=== PATIENT | female | born 1935 | race Caucasian/White ===

== ENCOUNTER 2018-04-12 12:32 | Observation (INO) | payer OTHER, MEDICARE ==
--- NOTE | 2018-04-12 13:03 | PDOC ---
History of Present Illness - General Stated Complaint: Lightheaded Time Seen by Provider: 04/12/18 12:56 - History of Present Illness Initial Comments: 04/12/18 13:03 Ms. Campos is an 82 yo female w/ pmh of HTN, HLD, diverticulitis, hiatal hernia who presents for evaluation of 2 day history of intermittent dizziness and nausea. Patient reports she has additionally felt some midline upper abdominal pain which she reports is different from her normal hialtal hernia pain. She also reports a several day history of foul smelling urine although she denies other urinary symptoms. The patient denies chest pain, shortness of breath, and headache. Denies fever, chills, vomit, diarrhea and constipation. Denies dysuria, frequency, urgency and hematuria. Past History - Past Medical History Allergies/Adverse Reactions: Allergies Allergy/AdvReac Type Severity Reaction Status Date / Time aspirin Allergy Verified 09/29/13 19:52 [From Aspirin Regimen Farooq/Calcium] diazepam [From Valium] Allergy Verified 09/29/13 19:52 sumatriptan [From Imitrex] Allergy unknown Verified 09/29/13 19:52 Home Medications: Ambulatory Orders Clopidogrel Bisulfate [Plavix -] 75 mg PO DAILY 09/29/13 Atorvastatin Calcium 40 mg PO HS 04/12/18 Calcium Carbonate/Vitamin D3 [Calcium 500 + Vit D3 400 Tab] 1 each PO DAILY 02/18 Lisinopril [Prinivil] 20 mg PO DAILY 04/12/18 Metoprolol Succinate 25 mg PO DAILY 04/12/18 Ranitidine HCl 150 mg PO DAILY 04/12/18 Anemia: No Asthma: No Cancer: No Cardiac Disorders: No 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) COPD: No CHF: No Dementia: No Diabetes: No GI Disorders: Yes (ABDOMINAL PAIN,CONSTIPATION, diverticulitis) Disorders: Yes (uti 1 wk ago) HTN: Yes Hypercholesterolemia: Yes Liver Disease: No Seizures: No Thyroid Disease: No - Surgical History Abdominal Surgery: Yes Appendectomy: Yes Cardiac Surgery: No Cholecystectomy: Yes Lung Surgery: No Neurologic Surgery: Yes (LAMINECTOMY) Orthopedic Surgery: Yes (TELLO-KNEE REPLACEMENT) - Immunization History Immunization Up to Date: Yes - Suicide/Smoking/Psychosocial Hx Smoking Status: No Smoking History: Never smoked Have you smoked in the past 12 months: No Number of Cigarettes Smoked Daily: 0 Hx Alcohol Use: No Drug/Substance Use Hx: No Substance Use Type: None Hx Substance Use Treatment: No Review of Systems - Review of Systems Comments:: 04/12/18 13:08 GENERAL/CONSTITUTIONAL: No fever or chills. No weakness. HEAD, EYES, EARS, NOSE AND THROAT: No change in vision. No ear pain or discharge. No sore throat. CARDIOVASCULAR: No chest pain or shortness of breath RESPIRATORY: No cough, wheezing, or hemoptysis. GASTROINTESTINAL: +Midline abdominal pain. Some nausea, no vomiting, diarrhea or constipation. GENITOURINARY: +Malodorous urine as described. No dysuria or frequency changes. MUSCULOSKELETAL: No joint or muscle swelling or pain. No neck or back pain. SKIN: No rash NEUROLOGIC: +Dizziness episodes as described. No headache, loss of consciousness , or change in strength/sensation. ENDOCRINE: No increased thirst. No abnormal weight change HEMATOLOGIC/LYMPHATIC: No anemia, easy bleeding, or history of blood clots. ALLERGIC/IMMUNOLOGIC: No hives or skin allergy. *Physical Exam - Physical Exam Comments: 04/12/18 13:09 GENERAL: Awake, alert, and fully oriented, in no acute distress HEAD: No signs of trauma, normocephalic, atraumatic EYES: PERRLA, EOMI, sclera anicteric, conjunctiva clear ENT: Auricles normal inspection, hearing grossly normal, nares patent, oropharynx clear without exudates. Moist mucosa NECK: Normal ROM, supple, no lymphadenopathy, JVD, or masses LUNGS: No distress, speaks full sentences, clear to auscultation bilaterally HEART: Regular rate and rhythm, normal S1 and S2, no murmurs, rubs or gallops, peripheral pulses normal and equal bilaterally. ABDOMEN: Soft, nontender, normoactive bowel sounds. No guarding, no rebound. No masses EXTREMITIES: Normal inspection, Normal range of motion, no edema. No clubbing or cyanosis. NEUROLOGICAL: Cranial nerves II through XII grossly intact. Normal speech, normal gait, no focal sensorimotor deficits SKIN: Warm, Dry, normal turgor, no rashes or lesions noted. ED Treatment Course - LABORATORY CBC & Chemistry Diagram: 04/12/18 13:35 04/12/18 13:35 Medical Decision Making - Medical Decision Making 04/12/18 17:11 Ms. Campos is an 82 yo female w/ pmh as described who presents for evaluation of symptoms concerning for CVA. Patient workup for etiology of dizziness negative. Elevated lactate treated w/ NS 1L bolus. Labs otherwise grossly wnl. Rocephin given for minor UTI as below. Admitting patient for further Neurology assessment. Laboratory Results - last 24 hr 04/12/18 04/12/18 04/12/18 13:35 13:35 13:35 WBC 7.9 RBC 4.86 Hgb 13.9 Hct 43.1 MCV 88.6 MCH 28.6 MCHC 32.3 RDW 14.8 Plt Count 306 MPV 8.7 D Absolute Neuts (auto) 6.1 Neutrophils % 77.1 Lymphocytes % 13.3 Monocytes % 8.0 Eosinophils % 0.7 Basophils % 0.9 Nucleated RBC % 0 Sodium 138 Potassium 4.2 Chloride 104 Carbon Dioxide 27 Anion Gap 8 BUN 16 Creatinine 0.8 Creat Clearance w eGFR > 60 Random Glucose 114 H Lactic Acid 2.1 H Calcium 9.1 Total Bilirubin 0.6 AST 20 ALT 24 Alkaline Phosphatase 92 Creatine Kinase 36 Troponin I < 0.02 Total Protein 7.1 Albumin 3.7 Urine Color Urine Appearance Urine pH Ur Specific [place] Urine Protein Urine Glucose (UA) Urine Ketones Urine Blood Urine Nitrite Urine Bilirubin Urine Urobilinogen Ur Leukocyte Esterase Urine WBC (Auto) Urine RBC (Auto) Urine Bacteria Hyaline Casts Urine Mucus 04/12/18 15:00 WBC RBC Hgb Hct MCV MCH MCHC RDW Plt Count MPV Absolute Neuts (auto) Neutrophils % Lymphocytes % Monocytes % Eosinophils % Basophils % Nucleated RBC % Sodium Potassium Chloride Carbon Dioxide Anion Gap BUN Creatinine Creat Clearance w eGFR Random Glucose Lactic Acid Calcium Total Bilirubin AST ALT Alkaline Phosphatase Creatine Kinase Troponin I Total Protein Albumin Urine Color Yellow Urine Appearance Slcloudy Urine pH 5.0 Ur Specific [place] 1.015 Urine Protein Negative Urine Glucose (UA) Negative Urine Ketones Negative Urine Blood 1+ H Urine Nitrite Negative Urine Bilirubin Negative Urine Urobilinogen Negative Ur Leukocyte Esterase Trace Urine WBC (Auto) 11 Urine RBC (Auto) 1 Urine Bacteria Few Hyaline Casts 1 Urine Mucus Rare *DC/Admit/Observation/Transfer Diagnosis at time of Disposition: Dizziness - Discharge Dispostion Decision to Admit order: Yes - Referrals Referrals: Zeke Daniel MD [Primary Care Provider] - - Patient Instructions - Post Discharge Activity
[2018-04-12 13:15] VITALS: BMI 35.7
[2018-04-12] MEDS ORDERED: ONDANSETRON 4 MG/2 ML VIAL IVPUSH ONE (13:46)
[2018-04-12] MEDS ORDERED: ONDANSETRON 4 MG/2 ML VIAL ONE (14:04)
[2018-04-12 14:10] LABS: BASO % 0.9 % (0-2.0); EOS % 0.7 % (0-4.5); HEMATOCRIT 43.1 % (32.4-45.2); HEMOGLOBIN 13.9 GM/dL (10.7-15.3); LYMPH % 13.3 % (8-40); MCH 28.6 pg (25.7-33.7); MCHC 32.3 g/dl (32.0-36.0); MEAN CELL VOLUME 88.6 fl (80-96); MEAN PLT VOLUME 8.7 fl (7.5-11.1); NEUT % 77.1 % (42.8-82.8); PLATELET COUNT 306 K/MM3 (134-434); RBC 4.86 M/mm3 (3.60-5.2); RDW 14.8 % (11.6-15.6); WHITE BLOOD COUNT 7.9 K/mm3 (4.0-10.0)
[2018-04-12 14:28] LABS: ALBUMIN 3.7 g/dl (3.4-5.0); ALK PHOS 92 U/L (45-117); ANION GAP 8 MMOL/L (8-16); BILIRUBIN,TOTAL 0.6 mg/dL (0.2-1); BLOOD UREA NITROGEN 16 mg/dL (7-18); CALCIUM 9.1 mg/dL (8.5-10.1); CHLORIDE 104 mmol/L (98-107); CO2 27 mmol/L (21-32); CREATININE 0.8 mg/dL (0.55-1.3); GLUCOSE,RANDOM 114 mg/dL (74-106); POTASSIUM 4.2 mmol/L (3.5-5.1); SGOT/AST 20 U/L (15-37); SGPT/ALT 24 U/L (13-61); SODIUM 138 mmol/L (136-145); TOT PROT 7.1 g/dl (6.4-8.2)
[2018-04-12] MEDS ORDERED: SODIUM CHLORIDE 1,000 ML IV STA (14:33)
--- NOTE | 2018-04-12 15:09 | EKG ---
Test Reason : Blood Pressure : / mmHG Vent. Rate : 069 BPM Atrial Rate : 069 BPM P-R Int : 136 ms QRS Dur : 114 ms QT Int : 436 ms P-R-T Axes : 014 -43 013 degrees QTc Int : 467 ms SINUS RHYTHM WITH PREMATURE ATRIAL COMPLEXES LEFT AXIS DEVIATION INCOMPLETE RIGHT BUNDLE BRANCH BLOCK ABNORMAL ECG WHEN COMPARED WITH ECG OF 14-MAY-2013 10:55, PREMATURE ATRIAL COMPLEXES ARE NOW PRESENT Confirmed by YANG ISBELL, HOLLI ([id number]) on 04/12/2018 3:08:59 PM Referred By: Confirmed By:HOLLI SORIA MD
[2018-04-12] MEDS ORDERED: MECLIZINE HCL 25 MG TABLET (FP) PO ONE (15:47)
--- NOTE | 2018-04-12 16:02 | PDOC ---
Attending Attestation - Resident Resident Name: Valdo Zelaya - ED Attending Attestation I have performed the following: I have examined & evaluated the patient, The case was reviewed & discussed with the resident, I agree w/resident's findings & plan, Exceptions are as noted - HPI HPI: 04/12/18 15:54 82 F with h/o HTN, HLD, diverticulitis, hiatal hernia, CVA with residual L side weakness, presents to ED with unsteadiness. Pt states that she has been having difficulty maintaining her balance for 2 days. Denies any falls. States that she ambulates with a walker normally but feels like she is "on a boat" when she attempts to walk. This morning, pt attempted to go to the bathroom but felt like she was going to fall. Pt denies any unilateral weakness/numbness. Endorses intermittent headache and nausea without vomiting. Denies CP/SOB. Denies F/C. - Physicial Exam PE: 04/12/18 16:02 "GENERAL: Awake, alert, and fully oriented, in no acute distress. HEAD: No signs of trauma EYES: PERRLA, EOMI, sclera anicteric, conjunctiva clear ENT: Auricles normal inspection, hearing grossly normal, nares patent, oropharynx clear without exudates. Moist mucosa NECK: Nontender, no stepoffs, Normal ROM, supple, no lymphadenopathy, JVD, or masses LUNGS: Breath sounds equal, clear to auscultation bilaterally. No wheezes, and no crackles HEART: Regular rate and rhythm, normal S1 and S2, no murmurs, rubs or gallops ABDOMEN: Soft, nontender, normoactive bowel sounds. No guarding, no rebound. No masses EXTREMITIES: Normal range of motion, no edema. No clubbing or cyanosis. No cords, erythema, or tenderness NEUROLOGICAL: Cranial nerves II through XII intact. + L sided weakness, Normal speech, normal cerebellar function SKIN: Warm, Dry, normal turgor, no rashes or lesions noted. - Medical Decision Making 04/12/18 16:02 82 F with unsteadiness x 2 days. Pt with no neuro deficits on exam other than residual L sided weakness. However, given h/o CVA, will need to r/o stroke. Will also evaluate for infectious/metabolic process. - Labs - CT head - Neuro c/s - Admit 04/12/18 16:40 Labs wnl other than UA consistent with UTI. CT head negative Will consult neuro and initiate abx for UTI. Admit to hospitalist.
[2018-04-12 16:07] LABS: URINE APPEARANCE SLCLOUDY; URINE BILIRUBIN NEGATIVE (<2.0 mg/dL); URINE COLOR YELLOW; URINE GLUCOSE (UA) NEGATIVE (NEGATIVE); URINE KETONE NEGATIVE (NEGATIVE); URINE LEUK ESTERASE TRACE (NEGATIVE); URINE NITRITE NEGATIVE (NEGATIVE); URINE PROTEIN NEGATIVE (NEGATIVE); URINE UROBILINOGEN NEGATIVE mg/dL (0.2-1.0)
[2018-04-12 16:30] LABS: URINE BACTERIA FEW /hpf (NONE SEEN); URINE HYALINE CAST 1 /lpf; URINE MUCUS RARE
[2018-04-12] MEDS ORDERED: MECLIZINE HCL 25 MG TABLET (FP) ONE (16:54)
[2018-04-12] MEDS ORDERED: DOCUSATE SODIUM 100 MG CAPSULE (FP) PO PRN (18:34)
[2018-04-12] MEDS ORDERED: SENNOSIDES 8.6MG TABLET (FP) PO PRN (18:34)
--- NOTE | 2018-04-12 18:53 | HP ---
Admitting History and Physical - Primary Care Physician PCP: Zeke Daniel - Admission Chief Complaint: Dizziness and worsening gait instability x 3 days History of Present Illness: 82 year old F with h/o HTN, obesity, OA, GERD and CVA > 25yrs ago reports progressive dizziness and gait instability over the course of 3days. At baseline pt uses a rollator to ambulate and is able to perform her ADLs without assistance. However, she decided to proceed to ED due to nausea, posterior neck discomfort, "room spinning", and increasing difficulty remaining steady in her feet. In ED vitals were 150/98, HR 72, RR 18, O2 sat 99% and temp 97.9. She was given IV Fluids and meclizine oral. Head CT negative for intracranial pathology. Pt admitted for observation and will have neuro consult in AM. History Source: Patient Limitations to Obtaining History: No Limitations - Past Medical History Cardiovascular: Yes: CAD, HTN, Hyperlipdemia Gastrointestinal: Yes: Diverticulosis, GERD, Hiatal Hernia ...LMP Comment: postmenopausal ...: No ...: 6 ...Para: 6 Musculoskeletal: Yes: Osteoarthritis ENT: No: Allergic Rhinitis, Sinusitis, Other - Past Surgical History Past Surgical History: Yes: Appendectomy, Cholecystectomy, , Joint Replacement (b/l Knee replacement), Laminectomy, Tonsillectomy Additional Past Surgical History: bilateral carpal tunnel release Left elbow fracture right ankle ORIF - Smoking History Smoking history: Never smoked Have you smoked in the past 12 months: No Aproximately how many cigarettes per day: 0 - Alcohol/Substance Use Hx Alcohol Use: No History of Substance Use: reports: None - Social History Usual Living Arrangement: Yes: With Child (lives with son in private home. 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 History of Recent Travel: No Home Medications - Allergies Allergies/Adverse Reactions: Allergies Allergy/AdvReac Type Severity Reaction Status Date / Time aspirin Allergy Verified 09/29/13 19:52 [From Aspirin Regimen Farooq/Calcium] diazepam [From Valium] Allergy Verified 09/29/13 19:52 sumatriptan [From Imitrex] Allergy unknown Verified 09/29/13 19:52 - Home Medications Home Medications: Ambulatory Orders Clopidogrel Bisulfate [Plavix -] 75 mg PO DAILY 09/29/13 Atorvastatin Calcium 40 mg PO HS 04/12/18 Calcium Carbonate/Vitamin D3 [Calcium 500 + Vit D3 400 Tab] 1 each PO DAILY 02/18 Lisinopril [Prinivil] 20 mg PO DAILY 04/12/18 Metoprolol Succinate 25 mg PO DAILY 04/12/18 Ranitidine HCl 150 mg PO DAILY 04/12/18 Family Disease History - Family Disease History Family Disease History: Other: Father ( age 62, + heart disease), Mother ( age 70, stomach cancer), Son (alive 50s, ESRD s/p Orthotopic kidney transplant) Other Family History: son alive (60) DMII, CKD, Parkinson's disease Review of Systems - Review of Systems Constitutional: reports: No Symptoms Eyes: reports: No Symptoms HENT: reports: Hearing Loss Neck: reports: Pain on Movement, Tenderness (along the scalene and trapezoid muscles) Cardiovascular: reports: No Symptoms Respiratory: reports: No Symptoms Gastrointestinal: reports: No Symptoms Genitourinary: reports: No Symptoms Musculoskeletal: reports: Decreased ROM, Joint Pain, Muscle Pain Integumentary: reports: No Symptoms Neurological: reports: Dizziness, Unsteady Gait, Weakness Endocrine: reports: No Symptoms Hematology/Lymphatic: reports: No Symptoms Psychiatric: reports: No Symptoms Physical Examination Vital Signs: Vital Signs Temperature 97.9 F 04/12/18 13:05 Pulse Rate 72 04/12/18 13:05 Respiratory Rate 18 04/12/18 13:05 Blood Pressure 150/98 04/12/18 13:05 O2 Sat by Pulse Oximetry (%) 99 04/12/18 13:10 Constitutional: Yes: Well Nourished, No Distress, Calm Eyes: Yes: Conjunctiva Clear, PERRL (no nystagmus or strabismus) HENT: Yes: Atraumatic, Normocephalic Neck: Yes: Supple, Trachea Midline, Decreased ROM, Tenderness (scalene and trapezoid muscles) Cardiovascular: Yes: Regular Rate and Rhythm Respiratory: Yes: Regular, CTA Bilaterally Gastrointestinal: Yes: Normal Bowel Sounds, Soft, Abdomen, Obese ...Rectal Exam: Yes: Deferred Musculoskeletal: Yes: Joint Stiffness (knees with decreased ROM), Muscle Weakness Extremities: Yes: Cool, Other (dry scaly skin) Edema: No Peripheral Pulses WNL: No Peripheral Pulses: Left Radial: 2+, Right Radial: 2+, Left Doralis Pedis: 1+, Right Dorsalis Pedis: 1+ Neurological: Yes: Alert, Oriented, Pre-Existing Deficit, Unsteady Gait, Weakness ...Motor Strength: LLE, RLE (decreased muscle strength 3/5 b/l LES) Psychiatric: Yes: Alert, Oriented Labs: CBC, BMP 04/12/18 13:35 04/12/18 13:35 Imaging - Results Chest X-ray: Report Reviewed X-ray: Report Reviewed (CXR 04/12/18 impression: there is fluid in the horizontal fissure. A discrete infiltrate is not seen. bones and soft tissues are intact) Cat Scan: Report Reviewed (Head CT 04/12: no evidence of acute intracranial pathology) EKG: Report Reviewed (EKG: SR with PACs 69bpm, LADm iRBBB. VINAYAK 136ms, QRS 114s, QTc 467ms) Problem List - Problems (1) Dizziness Assessment/Plan: Meclizine PRN dizziness Zofran PRN nausea IV fluid hydration Neuro eval in AM Code(s): R42 - DIZZINESS AND GIDDINESS (2) CAD (coronary artery disease) Assessment/Plan: plavix 75mg daily cardiac diet Code(s): I25.10 - ATHSCL HEART DISEASE OF [place] CORONARY ARTERY W/O ANG PCTRS (3) DVT prophylaxis Assessment/Plan: SC heparin 8hrs for DVT PPX OOB to chair encourage ambulation Code(s): [id number] - (4) GERD (gastroesophageal reflux disease) Assessment/Plan: Zantac 150mg daily Code(s): K21.9 - GASTRO-ESOPHAGEAL REFLUX DISEASE WITHOUT ESOPHAGITIS (5) Hyperlipidemia Assessment/Plan: lipitor 40mg qhs Code(s): E78.5 - HYPERLIPIDEMIA, UNSPECIFIED (6) Hypertension Assessment/Plan: lisinopril 20mg qam toprol xl 25mg daily cardiac diet Code(s): I10 - ESSENTIAL (PRIMARY) HYPERTENSION Assessment/Plan DISPO: full code Bowel regimen with senna and colace Visit type - Emergency Visit Emergency Visit: Yes ED Registration Date: 04/12/18 Care time: The patient presented to the Emergency Department on the above date and was hospitalized for further evaluation of their emergent condition. - New Patient This patient is new to me today: Yes Date on this admission: 04/12/18 - Critical Care Critical Care patient: No
[2018-04-12] MEDS: HEPARIN NA (PORCINE) 5,000 UNITS/ML 1ML VIAL SQ SCH (18:54)
[2018-04-12] MEDS ORDERED: HEPARIN NA (PORCINE) 5,000 UNITS/ML 1ML VIAL ONE (18:54)
[2018-04-12 19:41] LABS: N-TERMINAL BNP 625.9 pg/ml (5-450)
[2018-04-12] MEDS ORDERED: ATORVASTATIN CA 40 MG TABLET (FP) ONE (21:41)
[2018-04-12] MEDS: metoPROLOL SUCCINATE 25 MG TAB.SR.24H (FP) PO SCH (22:05)
[2018-04-12] MEDS: ATORVASTATIN CA 40 MG TABLET (FP) PO SCH (22:05)
[2018-04-12] MEDS ORDERED: ONDANSETRON 4 MG/2 ML VIAL IVPUSH PRN (23:09)
[2018-04-12] MEDS ORDERED: MECLIZINE HCL 25 MG TABLET (FP) PO PRN (23:09)
[2018-04-13] MEDS ORDERED: HEPARIN NA (PORCINE) 5,000 UNITS/ML 1ML VIAL ONE (02:04)
[2018-04-13] MEDS: HEPARIN NA (PORCINE) 5,000 UNITS/ML 1ML VIAL SQ SCH ×3 (02:20→18:02)
[2018-04-13 06:42] LABS: BASO % 0.9 % (0-2.0); EOS % 1.5 % (0-4.5); HEMATOCRIT 37.8 % (32.4-45.2); HEMOGLOBIN 12.3 GM/dL (10.7-15.3); LYMPH % 26.2 % (8-40); MCH 28.6 pg (25.7-33.7); MCHC 32.6 g/dl (32.0-36.0); MEAN CELL VOLUME 87.8 fl (80-96); MEAN PLT VOLUME 8.5 fl (7.5-11.1); MONO % 9.9 % (3.8-10.2); NEUT % 61.5 % (42.8-82.8); PLATELET COUNT 253 K/MM3 (134-434); RDW 14.5 % (11.6-15.6); WHITE BLOOD COUNT 8.4 K/mm3 (4.0-10.0)
[2018-04-13 06:58] LABS: INR 1.03 (0.83-1.09); PROTHROMBIN TIME (PATIENT) 12.2 SEC (9.7-13.0)
[2018-04-13 07:13] LABS: ALBUMIN 3.2 g/dl (3.4-5.0); ALK PHOS 75 U/L (45-117); ANION GAP 8 MMOL/L (8-16); BILIRUBIN,TOTAL 0.5 mg/dL (0.2-1); BLOOD UREA NITROGEN 15 mg/dL (7-18); CALCIUM 8.4 mg/dL (8.5-10.1); CHLORIDE 108 mmol/L (98-107); CO2 27 mmol/L (21-32); CREATININE 0.9 mg/dL (0.55-1.3); GLUCOSE,RANDOM 85 mg/dL (74-106); MAGNESIUM 1.7 mg/dL (1.8-2.4); PHOSPHOROUS 3.7 mg/dL (2.5-4.9); SGOT/AST 13 U/L (15-37); SGPT/ALT 18 U/L (13-61); SODIUM 143 mmol/L (136-145)
[2018-04-13] MEDS: metoPROLOL SUCCINATE 25 MG TAB.SR.24H (FP) PO SCH (09:27)
[2018-04-13] MEDS: LISINOPRIL 20 MG TABLET (FP) PO SCH (09:27)
[2018-04-13] MEDS: CLOPIDOGREL BISULFATE 75 MG TABLET (FP) PO SCH (09:27)
[2018-04-13] MEDS: RANITIDINE HCL 150 MG TABLET (FP) PO SCH (09:27)
[2018-04-13] MEDS: CALCIUM 500MG/VIT-D 200 UNITS COMBO TABLET (FP) PO SCH (09:27)
[2018-04-13] MEDS ORDERED: ACETAMINOPHEN 325 MG TABLET (FP) PO PRN (09:40)
[2018-04-13] MEDS ORDERED: MAGNESIUM OXIDE 400 MG TABLET (FP) PO ONE (09:58)
--- NOTE | 2018-04-13 10:17 | PN ---
Progress Note, Physician Chief Complaint: Pt lying in bed in no acute distress. reports dizziness for last 3 days, worsened w/ movements. feeling better today, hasnt gotten oob. Denies any chest pain, sob, n/v/d - Current Medication List Current Medications: Active Medications Acetaminophen (Tylenol -) 650 mg PO Q6H PRN PRN Reason: HEADACHE Atorvastatin Calcium (Lipitor -) 40 mg PO HS [facility] Last Admin: 04/12/18 22:05 Dose: 40 mg Calcium Carbonate/Cholecalciferol (Os-Demetrio 500+D -) 1 tab PO DAILY [facility] Last Admin: 04/13/18 09:27 Dose: 1 tab Clopidogrel Bisulfate (Plavix -) 75 mg PO DAILY [facility] Last Admin: 04/13/18 09:27 Dose: 75 mg Docusate Sodium (Colace -) 100 mg PO Q8H PRN PRN Reason: CONSTIPATION Heparin Sodium (Porcine) (Heparin -) 5,000 unit SQ Q8H-IV [facility] Last Admin: 04/13/18 09:26 Dose: 5,000 unit Lisinopril (Prinivil) 20 mg PO DAILY [facility] Last Admin: 04/13/18 09:27 Dose: 20 mg Magnesium Oxide (Mag-Ox -) 800 mg PO ONCE ONE Stop: 04/13/18 09:59 Meclizine HCl (Antivert -) 25 mg PO TID [facility] Metoprolol Succinate (Toprol Xl -) 25 mg PO DAILY [facility] Last Admin: 04/13/18 09:27 Dose: 25 mg Ondansetron HCl (Zofran Injection) 4 mg IVPUSH Q4H PRN PRN Reason: NAUSEA AND/OR VOMITING Ranitidine HCl (Zantac -) 150 mg PO DAILY [facility] Last Admin: 04/13/18 09:27 Dose: 150 mg Senna (Senna -) 2 tab PO HS PRN PRN Reason: CONSTIPATION - Objective Vital Signs: Vital Signs Temperature 98.0 F 04/13/18 08:00 Pulse Rate 64 04/13/18 08:00 Respiratory Rate 18 04/13/18 08:00 Blood Pressure 134/58 L 04/13/18 08:00 O2 Sat by Pulse Oximetry (%) 95 04/13/18 05:28 Constitutional: Yes: Well Nourished, No Distress, Calm, Obese Cardiovascular: Yes: WNL, Regular Rate and Rhythm Respiratory: Yes: WNL, Regular, CTA Bilaterally. No: Accessory Muscle Use, SOB , Tachypnea, Wheezes Gastrointestinal: Yes: WNL, Normal Bowel Sounds, Soft. No: Distention, Tenderness Genitourinary: Yes: WNL Extremities: Yes: WNL Edema: No Neurological: Yes: WNL, Alert, Oriented Psychiatric: Yes: WNL, Alert, Oriented Labs: CBC, BMP 04/13/18 06:15 04/13/18 06:15 INR, PTT INR 1.03 (0.83-1.09) 04/13/18 06:15 Problem List - Problems (1) Vertigo Assessment/Plan: symtoms consistent w/ vertigo pt still dizzy, hasn't gotten oob head ct/carotid duplex neg meclizine tid PT eval neuro consult pending Code(s): R42 - DIZZINESS AND GIDDINESS (2) Hyperlipidemia Assessment/Plan: chronic continue statin Code(s): E78.5 - HYPERLIPIDEMIA, UNSPECIFIED (3) Hypertension Assessment/Plan: controlled continue lisinopril/ metoprolol Code(s): I10 - ESSENTIAL (PRIMARY) HYPERTENSION Qualifiers: Hypertension type: essential hypertension Qualified Code(s): I10 - Essential (primary) hypertension (4) CAD (coronary artery disease) Assessment/Plan: no acute ACS continue plavix/statin Code(s): I25.10 - ATHSCL HEART DISEASE OF [place] CORONARY ARTERY W/O ANG PCTRS
[2018-04-13] MEDS: MECLIZINE HCL 25 MG TABLET (FP) PO SCH ×3 (12:00→22:16)
[2018-04-13] MEDS: ATORVASTATIN CA 40 MG TABLET (FP) PO SCH (22:16)
[2018-04-14] MEDS: HEPARIN NA (PORCINE) 5,000 UNITS/ML 1ML VIAL SQ SCH ×2 (02:09→10:28)
[2018-04-14] MEDS: MECLIZINE HCL 25 MG TABLET (FP) PO SCH ×2 (05:52→14:39)
[2018-04-14 07:46] LABS: ANION GAP 7 MMOL/L (8-16); BLOOD UREA NITROGEN 13 mg/dL (7-18); CALCIUM 8.5 mg/dL (8.5-10.1); CHLORIDE 107 mmol/L (98-107); CO2 28 mmol/L (21-32); CREATININE 0.9 mg/dL (0.55-1.3); GLUCOSE,RANDOM 81 mg/dL (74-106); MAGNESIUM 1.8 mg/dL (1.8-2.4); POTASSIUM 4.1 mmol/L (3.5-5.1); SODIUM 142 mmol/L (136-145)
--- NOTE | 2018-04-14 09:36 | CONSULT ---
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 At baseline pt uses a rollator to ambulate and is able to perform her ADLs without assistance. However, she decided to proceed to ED due to nausea, posterior neck discomfort, "room spinning", and increasing difficulty remaining steady in her feet. In ED vitals were 150/98, HR 72, RR 18, O2 sat 99% and temp 97.9. She was given IV Fluids and meclizine oral. Head CT negative for intracranial pathology. THis AM, more comfortable with meclezine, had IV fluids. Reports her symptoms are much better. Has responded well to treatment for vertigo. - Past Medical History Cardiovascular: Yes: CAD, HTN, Hyperlipdemia Gastrointestinal: Yes: Diverticulosis, GERD, Hiatal Hernia ...LMP Comment: postmenopausal ...: No ...: 6 ...Para: 6 Musculoskeletal: Yes: Osteoarthritis ENT: No: Allergic Rhinitis, Sinusitis, Other - Past Surgical History Past Surgical History: Yes: Appendectomy, Cholecystectomy, , Joint Replacement (b/l Knee replacement), Laminectomy, Tonsillectomy Additional Past Surgical History: bilateral carpal tunnel release Left elbow fracture right ankle ORIF - Smoking History Smoking history: Never smoked Have you smoked in the past 12 months: No Aproximately how many cigarettes per day: 0 - Alcohol/Substance Use Hx Alcohol Use: No History of Substance Use: reports: None - Social History Usual Living Arrangement: Yes: With Child (lives with son in private home. 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 History of Recent Travel: No Home Medications - Allergies Allergies/Adverse Reactions: Allergies Allergy/AdvReac Type Severity Reaction Status Date / Time aspirin Allergy Verified 09/29/13 19:52 [From Aspirin Regimen Farooq/Calcium] diazepam [From Valium] Allergy Verified 09/29/13 19:52 sumatriptan [From Imitrex] Allergy unknown Verified 09/29/13 19:52 - Home Medications Home Medications: Ambulatory Orders Clopidogrel Bisulfate [Plavix -] 75 mg PO DAILY 09/29/13 Atorvastatin Calcium 40 mg PO HS 04/12/18 Calcium Carbonate/Vitamin D3 [Calcium 500 + Vit D3 400 Tab] 1 each PO DAILY 02/18 Lisinopril [Prinivil] 20 mg PO DAILY 04/12/18 Metoprolol Succinate 25 mg PO DAILY 04/12/18 Ranitidine HCl 150 mg PO DAILY 04/12/18 Family Disease History - Family Disease History Family Disease History: Other: Father ( age 62, + heart disease), Mother ( age 70, stomach cancer), Son (alive 50s, ESRD s/p Orthotopic kidney transplant) Other Family History: son alive (60) DMII, CKD, Parkinson's disease Review of Systems - Review of Systems Constitutional: reports: No Symptoms Eyes: reports: No Symptoms HENT: reports: Hearing Loss Neck: reports: Pain on Movement, Tenderness (along the scalene and trapezoid muscles) Cardiovascular: reports: No Symptoms Respiratory: reports: No Symptoms Gastrointestinal: reports: No Symptoms Genitourinary: reports: No Symptoms Musculoskeletal: reports: Decreased ROM, Joint Pain, Muscle Pain Integumentary: reports: No Symptoms Neurological: reports: Dizziness, Unsteady Gait, Weakness Endocrine: reports: No Symptoms Hematology/Lymphatic: reports: No Symptoms Psychiatric: reports: No Symptoms Physical Examination Vital Signs Temperature 98.2 F 04/14/18 06:00 Pulse Rate 66 04/14/18 06:00 Respiratory Rate 20 04/14/18 06:00 Blood Pressure 147/63 04/14/18 06:00 O2 Sat by Pulse Oximetry (%) 95 04/14/18 05:16 Constitutional: Yes: Well Nourished, No Distress, Calm Eyes: Yes: Conjunctiva Clear, PERRL (no nystagmus or strabismus) HENT: Yes: Atraumatic, Normocephalic Neck: Yes: Supple, Trachea Midline, Decreased ROM, Tenderness (scalene and trapezoid muscles) Cardiovascular: Yes: Regular Rate and Rhythm Respiratory: Yes: Regular, CTA Bilaterally Gastrointestinal: Yes: Normal Bowel Sounds, Soft, Abdomen, Obese ...Rectal Exam: Yes: Deferred Musculoskeletal: Yes: Joint Stiffness (knees with decreased ROM), Muscle Weakness Extremities: Yes: Cool, Other (dry scaly skin) Edema: No Peripheral Pulses WNL: No Peripheral Pulses: Left Radial: 2+, Right Radial: 2+, Left Doralis Pedis: 1+, Right Dorsalis Pedis: 1+ Neurological: Alert, awake, interactive, no CN deficit, 5-/5 in UE, 5-/5 in LE, sensory intact, gait deferred Psychiatric: Yes: Alert, Oriented CBCD WBC 8.4 K/mm3 (4.0-10.0) 04/13/18 06:15 RBC 4.30 M/mm3 (3.60-5.2) 04/13/18 06:15 Hgb 12.3 GM/dL (10.7-15.3) 04/13/18 06:15 Hct 37.8 % (32.4-45.2) 04/13/18 06:15 MCV 87.8 fl (80-96) 04/13/18 06:15 MCHC 32.6 g/dl (32.0-36.0) 04/13/18 06:15 RDW 14.5 % (11.6-15.6) 04/13/18 06:15 Plt Count 253 K/MM3 (134-434) 04/13/18 06:15 MPV 8.5 fl (7.5-11.1) 04/13/18 06:15 CMP Sodium 142 mmol/L (136-145) 04/14/18 06:30 Potassium 4.1 mmol/L (3.5-5.1) 04/14/18 06:30 Chloride 107 mmol/L (98-107) 04/14/18 06:30 Carbon Dioxide 28 mmol/L (21-32) 04/14/18 06:30 Anion Gap 7 MMOL/L (8-16) L 04/14/18 06:30 BUN 13 mg/dL (7-18) 04/14/18 06:30 Creatinine 0.9 mg/dL (0.55-1.3) 04/14/18 06:30 Creat Clearance w eGFR > 60 (>60) 04/14/18 06:30 Random Glucose 81 mg/dL (74-106) 04/14/18 06:30 Calcium 8.5 mg/dL (8.5-10.1) 04/14/18 06:30 Total Bilirubin 0.5 mg/dL (0.2-1) 04/13/18 06:15 AST 13 U/L (15-37) L 04/13/18 06:15 ALT 18 U/L (13-61) 04/13/18 06:15 Alkaline Phosphatase 75 U/L (45-117) 04/13/18 06:15 Total Protein 6.0 g/dl (6.4-8.2) L 04/13/18 06:15 Albumin 3.2 g/dl (3.4-5.0) L 04/13/18 06:15 CARDIAC ENZYMES Creatine Kinase 36 IU/L (26-192) 04/12/18 13:35 Troponin I < 0.02 ng/ml (0.00-0.05) 04/12/18 19:00 Imaging Chest X-ray: Report Reviewed X-ray: Report Reviewed (CXR 04/12/18 impression: there is fluid in the horizontal fissure. A discrete infiltrate is not seen. bones and soft tissues are intact) Cat Scan: Report Reviewed (Head CT 04/12: no evidence of acute intracranial pathology) EKG: Report Reviewed (EKG: SR with PACs 69bpm, LADm iRBBB. 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 At baseline pt uses a rollator to ambulate and is able to perform her ADLs without assistance. However, she decided to proceed to ED due to nausea, posterior neck discomfort, "room spinning", and increasing difficulty remaining steady in her feet. In ED vitals were 150/98, HR 72, RR 18, O2 sat 99% and temp 97.9. She was given IV Fluids and meclizine oral. Head CT negative for intracranial pathology. THis AM, more comfortable with meclezine, had IV fluids. Reports her symptoms are much better. Has responded well to treatment for vertigo. Hydration recommended. Consider PT, patient still concerned about ambulating. Will need assistive device. Fall precautions. Monitor BP, maintain normotensive range. DVT ppx.
[2018-04-14] MEDS: CEFTRIAXONE 1 GM in DEXTROSE 5%-WATER - 50 ML IVPB ONE ×2 (09:40→12:30)
[2018-04-14] MEDS: metoPROLOL SUCCINATE 25 MG TAB.SR.24H (FP) PO SCH (10:28)
[2018-04-14] MEDS: RANITIDINE HCL 150 MG TABLET (FP) PO SCH (10:28)
[2018-04-14] MEDS: CALCIUM 500MG/VIT-D 200 UNITS COMBO TABLET (FP) PO SCH (10:28)
[2018-04-14] MEDS: CLOPIDOGREL BISULFATE 75 MG TABLET (FP) PO SCH (10:28)
[2018-04-14] MEDS: LISINOPRIL 20 MG TABLET (FP) PO SCH (10:28)
[2018-04-14] MEDS ORDERED: cefTRIAXone SODIUM 1 GM VIAL ONE (10:35)
[2018-04-14] MEDS ORDERED: DEXTROSE 5%-WATER - 50 ML IVPB ONE (10:36)
[2018-04-14] MEDS ORDERED: CEPHALEXIN MONOHYDRATE 500 MG CAPSULE (UD) PO SCH (11:15)
--- NOTE | 2018-04-14 11:26 | DS ---
Physical Examination Vital Signs: Vital Signs Temperature 98.2 F 04/14/18 06:00 Pulse Rate 66 04/14/18 06:00 Respiratory Rate 20 04/14/18 06:00 Blood Pressure 147/63 04/14/18 06:00 O2 Sat by Pulse Oximetry (%) 95 04/14/18 05:16 Constitutional: Yes: Well Nourished, No Distress, Calm Cardiovascular: Yes: WNL, Regular Rate and Rhythm. No: Murmur Respiratory: Yes: WNL, Regular, CTA Bilaterally. No: Accessory Muscle Use, SOB , Tachypnea, Wheezes Gastrointestinal: Yes: WNL, Normal Bowel Sounds, Soft. No: Distention, Tenderness, Vomiting Renal/: Yes: WNL Extremities: Yes: WNL Edema: No Neurological: Yes: WNL, Alert, Oriented Psychiatric: Yes: WNL, Alert, Oriented Labs: CBC, BMP 04/13/18 06:15 04/14/18 06:30 Discharge Summary Reason For Visit: DIZZINESS Current Active Problems Dizziness (Acute) Vertigo (Acute) Hospital Course: 82 year female admitted for evaluation of dizziness. symptoms consistent with BPPV, improved with meclizine. all neuro work up negative. neurology evaluated, cleared pt for discharge. Dizziness improved significantly today, ambulated safely with PT. Pt found to have UTI, UC growing gnb, pt c/o dysuria, keflex for 7 days ordered. Vitals stable, labs unremarkable. Advise outpt follow up with neuro and PCP. PCP informed of discharge. 31 minutes spent in discharge planning Condition: Improved - Instructions Diet, Activity, Other Instructions: continue home meds antibx x 7 days take meclizine as needed for dizziness use walker to ambulate follow up as directed Referrals: Zeke Daniel MD [Primary Care Provider] - 1 Week Aaron Last MD [Staff Physician] - 2 Weeks Disposition: HOME - Home Medications Comprehensive Discharge Medication List: Ambulatory Orders Clopidogrel Bisulfate [Plavix -] 75 mg PO DAILY 09/29/13 Atorvastatin Calcium 40 mg PO HS 04/12/18 Calcium Carbonate/Vitamin D3 [Calcium 500-Vit D3 400 Tablet] 1 each PO DAILY 02/18 Lisinopril [Prinivil] 20 mg PO DAILY 04/12/18 Metoprolol Succinate 25 mg PO DAILY 04/12/18 Ranitidine HCl 150 mg PO DAILY 04/12/18 Cephalexin Monohydrate [Keflex -] 500 mg PO BID 7 Days #14 capsule 04/14/18 Meclizine HCl [Antivert -] 25 mg PO TID PRN #21 tablet 04/14/18
[2018-04-14 14:07] VITALS: BP 122/61; PULSE 70; TEMP 97.8
== END 2018-04-14 16:47 | disposition home or self-care (01) ==
LOC: JER 12:32 → JERBED 17:14 → INTOOBSV 17:14 → J5S 04-13 04:43
PROVIDERS: ADMIT Internal Medicine; ATTEND Nurse Practitioner Family
PROC: 3E013GC Introduction of Other Therapeutic Substance into Subcutaneous Tissue, Percutaneous Approach (ICD-10-PCS; principal; 2018-04-12)
DX: R42 Dizziness and giddiness (principal); N39.0 Urinary tract infection, site not specified; B96.89 Other specified bacterial agents as the cause of diseases classified elsewhere; I25.10 Atherosclerotic heart disease of native coronary artery without angina pectoris; I10 Essential (primary) hypertension; E78.5 Hyperlipidemia, unspecified; K21.9 Gastro-esophageal reflux disease without esophagitis; K44.9 Diaphragmatic hernia without obstruction or gangrene; I69.854 Hemiplegia and hemiparesis following other cerebrovascular disease affecting left non-dominant side; E66.9 Obesity, unspecified; Z68.35 Body mass index [BMI] 35.0-35.9, adult; Z96.653 Presence of artificial knee joint, bilateral; Z99.89 Dependence on other enabling machines and devices
CPT/HCPCS: 36415; 70450-TC; 71045-TC-FY; 80048; 80053; 81003; 81015; 82550; 83605; 83735; 83880; 84100; 84484; 85025; 85610; 85730; 87086; 87186; 93005; 93010; 93880-TC; 96372; 97116-GP; 97161-GP; 99285-25; G0378; J1644; J7030

== ENCOUNTER 2018-09-11 08:26 | Emergency (ER) | payer OTHER, MEDICARE ==
[2018-09-11 08:32] VITALS: BP 167/79; PULSE 85; TEMP 98.1; BMI 34.9
[2018-09-11] MEDS ORDERED: ACETAMINOPHEN 500 MG TABLET (FP) PO ONE (08:49)
[2018-09-11] MEDS ORDERED: ACETAMINOPHEN 500 MG TABLET (FP) ONE (08:51)
--- NOTE | 2018-09-11 08:57 | PDOC ---
History of Present Illness - General Chief Complaint: Pain Stated Complaint: FOOT PAIN Time Seen by Provider: 09/11/18 08:44 History Source: Patient Exam Limitations: No Limitations - History of Present Illness Initial Comments: 09/11/18 08:49 states last night was flexing and extending foot and fgelty a pop, now with pain and some swelling to foot/ hurts to plantar aspect/ Occurred: reports: yesterday Severity: reports: mild, moderate Pain Location: reports: lower extremity (left foot and ankle ) Modifying Factors: improves with: None Associated Symptoms (Fall): denies symptoms Past History - Travel Traveled outside of the country in the last 30 days: No Close contact w/someone who was outside of country & ill: No - Past Medical History Allergies/Adverse Reactions: Allergies Allergy/AdvReac Type Severity Reaction Status Date / Time aspirin Allergy Verified 09/11/18 08:28 [From Aspirin Regimen Farooq/Calcium] diazepam [From Valium] Allergy Verified 09/11/18 08:28 sumatriptan [From Imitrex] Allergy unknown Verified 09/11/18 08:28 Home Medications: Ambulatory Orders Clopidogrel Bisulfate [Plavix -] 75 mg PO DAILY 09/29/13 Atorvastatin Calcium 40 mg PO HS 04/12/18 Calcium Carbonate/Vitamin D3 [Calcium 500-Vit D3 400 Tablet] 1 each PO DAILY 02/18 Lisinopril [Prinivil] 20 mg PO DAILY 04/12/18 Metoprolol Succinate 25 mg PO DAILY 04/12/18 Ranitidine HCl 150 mg PO DAILY 04/12/18 Cephalexin Monohydrate [Keflex -] 500 mg PO BID 7 Days #14 capsule 04/14/18 Meclizine HCl [Antivert -] 25 mg PO TID PRN #21 tablet 04/14/18 Anemia: No Asthma: No Cancer: No Cardiac Disorders: No 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) COPD: No CHF: No Dementia: No Diabetes: No GI Disorders: Yes (ABDOMINAL PAIN,CONSTIPATION, diverticulitis) Disorders: Yes (uti 1 wk ago) HTN: Yes Hypercholesterolemia: Yes Liver Disease: No Seizures: No Thyroid Disease: No - Surgical History Abdominal Surgery: Yes Appendectomy: Yes Cardiac Surgery: No Cholecystectomy: Yes Lung Surgery: No Neurologic Surgery: Yes (LAMINECTOMY) Orthopedic Surgery: Yes (TELLO-KNEE REPLACEMENT) - Immunization History Immunization Up to Date: Yes - Suicide/Smoking/Psychosocial Hx Smoking Status: No Smoking History: Never smoked Have you smoked in the past 12 months: No Number of Cigarettes Smoked Daily: 0 Information on smoking cessation initiated: No Hx Alcohol Use: No Drug/Substance Use Hx: No Substance Use Type: None Hx Substance Use Treatment: No Review of Systems - Review of Systems Able to Perform ROS?: Yes Is the patient limited Persian proficient: Yes Constitutional: Yes: Symptoms Reported, See HPI. No: Fever, Malaise HEENTM: Yes: See HPI. No: Symptoms Reported Musculoskeletal: Yes: Symptoms Reported, See HPI, Joint Pain, Joint Swelling, Muscle Pain All Other Systems: Reviewed and Negative *Physical Exam - Vital Signs Last Vital Signs Temp Pulse Resp BP Pulse Ox 98.1 F 85 16 167/79 99 09/11/18 08:28 09/11/18 08:28 09/11/18 08:28 09/11/18 08:28 09/11/18 08:28 - Physical Exam General Appearance: Yes: Nourished, Appropriately Dressed, Apparent Distress HEENT: positive: VICTORINO, Normal ENT Inspection Neck: negative: Tender Respiratory/Chest: positive: Lungs Clear Musculoskeletal: positive: Normal Inspection Extremity: positive: Normal Capillary Refill, Normal Inspection, Tender (to point to plantar aspect of left foot. No Bruising or deformity noted ). 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 Galindo wrap applied to foot, patient are and he has cane, and states will follow-up with Dr. Lau who has seen her in the past for ankle fracture on Thursday or Thursday. *DC/Admit/Observation/Transfer Diagnosis at time of Disposition: Sprain of foot, left Qualifiers: Encounter type: initial encounter Qualified Code(s): S93.602A - Unspecified sprain of left foot, initial encounter - Discharge Dispostion Disposition: HOME Decision to Admit order: No - Referrals Referrals: Zeke Daniel MD [Primary Care Provider] - Yovani Lau MD [Staff Physician] - - Patient Instructions Printed Discharge Instructions: DI for Plantar Fasciitis Additional Instructions: Rest, ice to area on and off for 15 minutes 4-6 times a day Avoid heavy lifting or exercise until pain and swelling is resolved or until further directed Keep area highly elevated to reduce swelling Use splints/Galindo wrap as directed Followup with orthopedist in one to 2 days if not improving, if significantly improved may wait one week for followup with orthopedist May use Tylenol, 2 tabs of 325 mg hours as needed for pain - Post Discharge Activity
== END 2018-09-11 09:23 | disposition home or self-care (01) ==
LOC: JERFT 08:26
DX: S93.602A Unspecified sprain of left foot, initial encounter (principal); X58.XXXA Exposure to other specified factors, initial encounter; Y93.89 Activity, other specified; Y92.89 Other specified places as the place of occurrence of the external cause; Z96.653 Presence of artificial knee joint, bilateral; I10 Essential (primary) hypertension; R10.9 Unspecified abdominal pain; Z86.73 Personal history of transient ischemic attack (TIA), and cerebral infarction without residual deficits; K59.00 Constipation, unspecified
CPT/HCPCS: 73610-TC-LT-FY; 73630-TC-LT; 99281-25

== ENCOUNTER 2019-05-10 15:10 | Inpatient (IN) | payer OTHER, MEDICARE ==
--- NOTE | 2019-05-10 15:51 | PDOC ---
History of Present Illness - General Chief Complaint: Constipation Stated Complaint: STOMACH PAIN/CONSTIPATION Time Seen by Provider: 05/10/19 15:50 - History of Present Illness Initial Comments: 05/10/19 15:57 83 year old female w/ pmh of HTN, HLD, diverticulitis, hiatal hernia who presents with constipation for 3 days and mid abdominal pressure like pain that occurred approx 3 hours prior to arrival she attempted to have a bowel movement when she became nauseous and started dry heaving. She stated that she was able to extrude a small amount of hard stool. She reports that she has had some diet changes lately as her son passed and she financially can only afford to eat oatmeal for every meal. She has been passing gas. PSHX: appendectomy, cholecystectomy ROS GENERAL/CONSTITUTIONAL: No fever or chills. No weakness. HEAD, EYES, EARS, NOSE AND THROAT: No sore throat. CARDIOVASCULAR: No chest pain or shortness of breath RESPIRATORY: No cough, wheezing, or hemoptysis. GASTROINTESTINAL: + nausea, No vomiting, diarrhea or constipation. GENITOURINARY: No dysuria, frequency, or change in urination. MUSCULOSKELETAL: No joint or muscle swelling or pain. No neck or back pain. SKIN: No rash NEUROLOGIC: No headache, vertigo, loss of consciousness, or change in strength/ sensation. ENDOCRINE: No increased thirst. No abnormal weight change HEMATOLOGIC/LYMPHATIC: No anemia, easy bleeding, or history of blood clots. ALLERGIC/IMMUNOLOGIC: No hives or skin allergy. PE GENERAL: Awake, alert, and fully oriented, in no acute distress HEAD: No signs of trauma, normocephalic, atraumatic EYES: EOMI, sclera anicteric, conjunctiva clear ENT: oropharynx clear withoutexudates. Moist mucosa NECK: Normal ROM, supple LUNGS: No distress, speaks full sentences, clear to auscultation bilaterally HEART: Regular rate and rhythm, normal S1 and S2, no murmurs, rubs or gallops, peripheral pulses normal and equal bilaterally. ABDOMEN: Soft, + mild mid abdominal pain to deep palpation, No guarding, no rebound. No masses EXTREMITIES : Normal inspection, Normal range of motion, no edema. No clubbing or cyanosis. NEUROLOGICAL: Cranial nerves II through XII grossly intact. Normal speech, no focal sensorimotor deficits SKIN: Warm, Dry, normal turgor, no rashes or lesions noted MDM DDX including but not limited to: constipation r/o sbo ED Course: give fleet enema, mag citrate, po contrast for ct ap cbc, cmp cbc with leukocytosis Georgia Mancilla, PGY2 Emergency Medicine 05/10/19 18:15 Past History - Past Medical History Allergies/Adverse Reactions: Allergies Allergy/AdvReac Type Severity Reaction Status Date / Time aspirin Allergy Verified 09/11/18 08:28 [From Aspirin Regimen Farooq/Calcium] diazepam [From Valium] Allergy Verified 09/11/18 08:28 sumatriptan [From Imitrex] Allergy unknown Verified 09/11/18 08:28 Home Medications: Ambulatory Orders Clopidogrel Bisulfate [Plavix -] 75 mg PO DAILY 09/29/13 Atorvastatin Calcium 40 mg PO HS 04/12/18 Calcium Carbonate/Vitamin D3 [Calcium 500-Vit D3 400 Tablet] 1 each PO DAILY 02/18 Lisinopril [Prinivil] 20 mg PO DAILY 04/12/18 Metoprolol Succinate 25 mg PO DAILY 04/12/18 Ranitidine HCl 150 mg PO DAILY 04/12/18 Cholecalciferol (Vitamin D3) [Vitamin D3] 2,000 unit PO DAILY 05/10/19 Cranberry Fruit Extract [Cranberry] 250 mg PO DAILY 05/10/19 Levothyroxine [Synthroid -] 25 mcg PO DAILY 05/10/19 Anemia: No Asthma: No Cancer: No Cardiac Disorders: No 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) COPD: No CHF: No Dementia: No Diabetes: No GI Disorders: Yes (ABDOMINAL PAIN,CONSTIPATION, diverticulitis) Disorders: Yes (uti 1 wk ago) HTN: Yes Hypercholesterolemia: Yes Liver Disease: No Seizures: No Thyroid Disease: No - Surgical History Abdominal Surgery: Yes Appendectomy: Yes Cardiac Surgery: No Cholecystectomy: Yes Lung Surgery: No Neurologic Surgery: Yes (LAMINECTOMY) Orthopedic Surgery: Yes (TELLO-KNEE REPLACEMENT) - Immunization History Immunization Up to Date: Yes - Psycho Social/Smoking Cessation Hx Smoking Status: No Smoking History: Never smoked Have you smoked in the past 12 months: No Number of Cigarettes Smoked Daily: 0 Hx Alcohol Use: No Drug/Substance Use Hx: No Substance Use Type: None Hx Substance Use Treatment: No *Physical Exam - Vital Signs Last Vital Signs Temp Pulse Resp BP Pulse Ox 97.8 F 103 H 20 121/85 98 05/10/19 15:18 05/10/19 15:18 05/10/19 15:18 05/10/19 15:18 05/10/19 15:18 ED Treatment Course - LABORATORY CBC & Chemistry Diagram: 05/10/19 17:30 05/10/19 17:30 Discharge - Follow up/Referral Referrals: Zeke Daniel MD [Primary Care Provider] - - Patient Discharge Instructions - Post Discharge Activity
[2019-05-10] MEDS ORDERED: SODIUM PHOSPHATE/NA BIPHOS 133 ML ENEMA PR ONE (17:06)
[2019-05-10] MEDS ORDERED: MAGNESIUM CITRATE 300 ML BOTTLE PO ONE (17:10)
--- NOTE | 2019-05-10 17:28 | PDOC ---
Documentation entered by Kali Rojas SCRIBE, acting as scribe for Cayetano Vazquez MD. Cayetano Vazquez MD: This documentation has been prepared by the Bob garduno Daniel, SCRIBE, under my direction and personally reviewed by me in its entirety. I confirm that the documentation accurately reflects all work, treatment, procedures, and medical decision making performed by me. Attending Attestation - Resident Resident Name: Charo[place]ia - ED Attending Attestation I have performed the following: I have examined & evaluated the patient, The case was reviewed & discussed with the resident, I agree w/resident's findings & plan, Exceptions are as noted - HPI HPI: 05/10/19 17:26 83 F with h/o HTN, HLD, diverticulitis, presenting to ED with constipation and abdominal discomfort. Pt reports last BM was approx 4 days ago. She endorses nauseous without vomiting. Still passing flatus. Denies CP/SOB. Has had prior appendectomy and cholecystectomy. - Physicial Exam PE: 05/10/19 17:27 "GENERAL: Awake, alert, and fully oriented, in no acute distress. HEAD: No signs of trauma EYES: PERRLA, EOMI, sclera anicteric, conjunctiva clear ENT: Auricles normal inspection, hearing grossly normal, nares patent, oropharynx clear without exudates. Moist mucosa NECK: Nontender, no stepoffs, Normal ROM, supple, no lymphadenopathy, JVD, or masses LUNGS: Breath sounds equal, clear to auscultation bilaterally. No wheezes, and no crackles HEART: Regular rate and rhythm, normal S1 and S2, no murmurs, rubs or gallops ABDOMEN: + mild periumbilical TTP, normoactive bowel sounds. No guarding, no rebound. No masses EXTREMITIES: Normal range of motion, no edema. No clubbing or cyanosis. No cords, erythema, or tenderness NEUROLOGICAL: Cranial nerves II through XII intact. 5/5 strength and sensation in all extremities, Normal speech, normal gait, normal cerebellar function SKIN: Warm, Dry, normal turgor, no rashes or lesions noted. - Medical Decision Making 05/10/19 17:27 83 F with constipation and abdominal discomfort. Will r/o obstruction given prior surgical history and tenderness on exam. - Labs - CT - Fleet enema
[2019-05-10] MEDS: SODIUM CHLORIDE 1,000 ML IV SCH (17:34)
[2019-05-10 17:43] LABS: BASO % 0.2 % (0-2.0); HEMATOCRIT 42.5 % (32.4-45.2); HEMOGLOBIN 13.8 GM/dL (10.7-15.3); LYMPH % 5.7 % (8-40); MCH 28.6 pg (25.7-33.7); MCHC 32.4 g/dl (32.0-36.0); MEAN CELL VOLUME 88.3 fl (80-96); MEAN PLT VOLUME 9.8 fl (7.5-11.1); MONO % 4.6 % (3.8-10.2); NEUT % 89.5 % (42.8-82.8); PLATELET COUNT 360 K/MM3 (134-434); RBC 4.81 M/mm3 (3.60-5.2); RDW 15.3 % (11.6-15.6); WHITE BLOOD COUNT 18.9 K/mm3 (4.0-10.0)
[2019-05-10 18:25] LABS: BILIRUBIN,TOTAL 0.7 mg/dL (0.2-1); BLOOD UREA NITROGEN 20.9 mg/dL (7-18); CALCIUM 9.5 mg/dL (8.5-10.1); CREATININE 0.8 mg/dL (0.55-1.3); POTASSIUM 4.8 mmol/L (3.5-5.1); TOT PROT 7.1 g/dl (6.4-8.2)
[2019-05-10] MEDS ORDERED: ACETAMINOPHEN 1000 MG/100 ML VIAL (NON FORMULARY) IVPB ONE (20:33)
[2019-05-10] MEDS ORDERED: ACETAMINOPHEN INJECTION 100 ML IVPB ONE (21:25)
--- NOTE | 2019-05-10 22:23 | PDOC ---
*Physical Exam - Vital Signs Last Vital Signs Temp Pulse Resp BP Pulse Ox 97.8 F 103 H 20 121/85 98 05/10/19 15:18 05/10/19 15:18 05/10/19 15:18 05/10/19 15:18 05/10/19 15:18 - Physical Exam 05/10/19 22:22 Patient's care was endorsed to me by Dr. Mancilal at the end of her shift. Patient is an 83 YOF who presented with constipation, still passing gas, and abdominal pain. Has been eating only oatmeal due to financial issues. She is pending CTAP and UA then will make dispo decision. ED Treatment Course - LABORATORY CBC & Chemistry Diagram: 05/10/19 17:30 05/10/19 17:30 - ADDITIONAL ORDERS Additional order review: Laboratory Results 05/10/19 17:30 Sodium 139 Potassium 4.8 Chloride 105 Carbon Dioxide 25 Anion Gap 9 BUN 20.9 H Creatinine 0.8 Est GFR (CKD-EPI)AfAm 80.14 Est GFR (CKD-EPI)NonAf 69.14 Random Glucose 107 H Calcium 9.5 Total Bilirubin 0.7 AST 26 ALT 17 Alkaline Phosphatase 109 Total Protein 7.1 Albumin 4.0 05/10/19 17:30 RBC 4.81 MCV 88.3 MCHC 32.4 RDW 15.3 MPV 9.8 D Neutrophils % 89.5 H D Lymphocytes % 5.7 L D Monocytes % 4.6 Eosinophils % 0.0 D Basophils % 0.2 - Medications Given in the ED: ED Medications Discontinued Medications Generic Name Dose Route Start Last Admin Trade Name Freq PRN Reason Stop Dose Admin Acetaminophen 1,000 mg 05/10/19 20:33 05/10/19 21:32 Ofirmev Injection - IVPB 05/10/19 20:34 1,000 mg ONCE ONE Administration Magnesium Citrate 300 ml 05/10/19 17:10 05/10/19 21:03 Citroma - PO 05/10/19 17:11 Not Given ONCE ONE Sodium Phosphate 133 ml 05/10/19 17:06 05/10/19 21:03 Fleet Adult Rectal Enema - SC 05/10/19 17:07 Not Given ONCE ONE Medical Decision Making - Medical Decision Making 05/10/19 23:45 83YOF with abdominal pain, dry heaving, constipation. Vital Signs - 24 hr 05/10/19 15:18 Temperature 97.8 F Pulse Rate 103 H Respiratory 20 Rate Blood Pressure 121/85 O2 Sat by Pulse 98 Oximetry (%) Laboratory Tests 05/10/19 05/10/19 05/10/19 17:30 17:30 23:00 WBC 18.9 H RBC 4.81 Hgb 13.8 Hct 42.5 MCV 88.3 MCH 28.6 MCHC 32.4 RDW 15.3 Plt Count 360 D MPV 9.8 D Absolute Neuts (auto) 16.9 H Neutrophils % 89.5 H D Lymphocytes % 5.7 L D Monocytes % 4.6 Eosinophils % 0.0 D Basophils % 0.2 Nucleated RBC % 0 Sodium 139 Potassium 4.8 Chloride 105 Carbon Dioxide 25 Anion Gap 9 BUN 20.9 H Creatinine 0.8 Est GFR (CKD-EPI)AfAm 80.14 Est GFR (CKD-EPI)NonAf 69.14 Random Glucose 107 H Calcium 9.5 Total Bilirubin 0.7 AST 26 ALT 17 Alkaline Phosphatase 109 Total Protein 7.1 Albumin 4.0 Urine Color Yellow Urine Appearance Clear Urine pH 5.0 Ur Specific [place] 1.014 Urine Protein Negative Urine Glucose (UA) Negative Urine Ketones 1+ H Urine Blood Negative Urine Nitrite Negative Urine Bilirubin Negative Urine Urobilinogen 0.2 Ur Leukocyte Esterase Negative 05/10/19 23:51 CT/ABDOMEN PELVIS CT WITH CONTR Abdomen and pelvis CT (with intravenous and oral contrast) Clinical information: evaluate for small bowel obstruction; constipated with h/o surgery Multiplanar imaging was performed utilizing intravenous as well as oral contrast. No evidence of pneumoperitoneum, abscess, free intraperitoneal fluid or bowel obstruction. Administered oral contrast is seen to traverse the length of the small and large bowel and opacify the rectum. There is no definite colonic fecal retention. In comparison to prior CT studies performed in 2011 and 2012 interval development of mild concentric continuous wall thickening is noted along the length of the left colon from the level of the splenic flexure through the upper third of the sigmoid segment. Minimal to mild pericolonic soft tissue stranding is seen. An approximately 2.5 x 1.7 cm noncalcified homogeneous cystic lesion is seen within the uncinate process of the pancreas previously measuring 1.2 x 1 cm. There is no obvious associated soft tissue nodularity or thickened internal septations. No dilatation of the main pancreatic duct is identified. GI consultation is suggested. The remainder of the exam appears unchanged. Sigmoid diverticulosis is seen without evidence of acute diverticulitis. The appendix is not definitely identified however no indirect CT signs of acute appendicitis are seen. There is no gross small bowel pathology. Status post cholecystectomy as on prior exams .The common bile duct is slightly prominent measuring 0.9 cm in diameter. Note is again made of minimal intrahepatic biliary tract dilatation. The liver, spleen, adrenal glands and kidneys demonstrate no discrete abnormality. There is no aortic aneurysm. No definite lymphadenopathy is noted on the basis of size criteria. No obvious CT evidence of pelvic soft tissue pathology. Status post lower lumbar spine surgery. Diffuse osteoporosis. Somewhat extensive atherosclerotic vascular calcifications are noted within the abdomen or pelvis. There is partial imaging of dense atherosclerotic coronary artery calcifications. IMPRESSION: No CT evidence of bowel obstruction or colonic fecal retention. In comparison to [address] studies interval development of mild concentric continuous wall thickening is seen along the left colon from the level of the splenic flexure to the upper third of the sigmoid region. Minimal pericolonic soft tissue stranding is seen. This finding may represent the sequela of interval colitis versus possibly being acute/ subacute in nature. Correlate clinically. Interval enlargement of a cystic lesion is seen within the uncinate process of the pancreas currently measuring 2.5 x 1.7 cm, previously 1.2 x 1 cm. The remainder of the exam demonstrates no definite interval change. Sigmoid diverticulosis. Status post cholecystectomy. Note is again made of slight common bile duct dilatation with a 0.9 cm diameter. There is again visualization of minimal intrahepatic bili tract dilatation. Patient did have diarrhea-like BM while here in the ED. They require further hospital observation, workup, and treatment. Microblog sent to [facility] for admission. Blank Decision to Admit order is placed per ED protocol. 05/11/19 00:06 Spoke with JOHN PAUL Wharton, patient admitted to Med/Surg to Dr. Ayoub for Dr. Daniel. Discharge - Discharge Information Problems reviewed: Yes Clinical Impression/Diagnosis: Constipation, Colitis, Abdominal pain Condition: Guarded - Admission Yes - Follow up/Referral Referrals: Zeke Daniel MD [Primary Care Provider] - - Patient Discharge Instructions - Post Discharge Activity
[2019-05-10 23:36] LABS: URINE APPEARANCE CLEAR; URINE BILIRUBIN NEGATIVE (NEGATIVE); URINE COLOR YELLOW; URINE GLUCOSE (UA) NEGATIVE (NEGATIVE); URINE KETONE 1+ (NEGATIVE); URINE LEUK ESTERASE NEGATIVE (NEGATIVE); URINE NITRITE NEGATIVE (NEGATIVE); URINE PROTEIN NEGATIVE (NEGATIVE); URINE UROBILINOGEN 0.2 mg/dL (0.2-1.0)
[2019-05-10] MEDS ORDERED: CEFTRIAXONE 1,000 MG in DEXTROSE 5%-WATER - 50 ML IVPB ONE (23:53)
[2019-05-11] MEDS ORDERED: CEFTRIAXONE 1 GM/50 ML BAG ONE (00:04)
--- NOTE | 2019-05-11 00:09 | HP ---
Admitting History and Physical - Primary Care Physician PCP: Zeke Daniel (From [place], not [facility]) - Admission Chief Complaint: Constipation, Abdominal Pain, Failure to Thrive History of Present Illness: This is a 83 y/o woman with a PMHx of HTN, HLD, Diverticulitis, GERD, Hiatal Hernia. Who presents with constipation for 3 days and mid abdominal pressure like pain that occurred approx 3 hours prior to arrival she attempted to have a bowel movement when she became nauseous and started dry heaving. She stated that she was able to extrude a small amount of hard stool. She reports that she has had some diet changes lately as her son passed and she financially can only afford to eat oatmeal for every meal. She has been passing gas. 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 Cardiovascular: Yes: CAD, HTN, Hyperlipdemia Gastrointestinal: Yes: Diverticulosis, GERD, Hiatal Hernia Musculoskeletal: Yes: Osteoarthritis - Past Surgical History Past Surgical History: Yes: Appendectomy, Cholecystectomy, , Joint Replacement (b/l Knee replacement), Laminectomy, Tonsillectomy - Smoking History Smoking history: Never smoked Have you smoked in the past 12 months: No Aproximately how many cigarettes per day: 0 - Alcohol/Substance Use Hx Alcohol Use: No History of Substance Use: reports: None - Social History Usual Living Arrangement: Yes: Alone ADL: Independent 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 History of Recent Travel: No Home Medications - Allergies Allergies/Adverse Reactions: Allergies Allergy/AdvReac Type Severity Reaction Status Date / Time aspirin Allergy Verified 09/11/18 08:28 [From Aspirin Regimen Farooq/Calcium] diazepam [From Valium] Allergy Verified 09/11/18 08:28 sumatriptan [From Imitrex] Allergy unknown Verified 09/11/18 08:28 - Home Medications Home Medications: Ambulatory Orders Clopidogrel Bisulfate [Plavix -] 75 mg PO DAILY 09/29/13 Atorvastatin Calcium 40 mg PO HS 04/12/18 Calcium Carbonate/Vitamin D3 [Calcium 500-Vit D3 400 Tablet] 1 each PO DAILY 02/18 Lisinopril [Prinivil] 20 mg PO DAILY 04/12/18 Metoprolol Succinate 25 mg PO DAILY 04/12/18 Ranitidine HCl 150 mg PO DAILY 04/12/18 Cholecalciferol (Vitamin D3) [Vitamin D3] 2,000 unit PO DAILY 05/10/19 Cranberry Fruit Extract [Cranberry] 250 mg PO DAILY 05/10/19 Levothyroxine [Synthroid -] 25 mcg PO DAILY 05/10/19 Family Medical History Family Hx Cancer: Mother (Stomach- ) Family Hx Cardiac Disorders: Father (MD- ) Review of Systems - Review of Systems Constitutional: reports: No Symptoms Eyes: reports: No Symptoms HENT: reports: No Symptoms Neck: reports: No Symptoms Cardiovascular: reports: No Symptoms Respiratory: reports: No Symptoms Gastrointestinal: reports: Abdominal Pain, Constipation, Nausea Genitourinary: reports: No Symptoms Breasts: reports: No Symptoms Reported Musculoskeletal: reports: Joint Pain (left hip) Integumentary: reports: No Symptoms Endocrine: reports: No Symptoms Hematology/Lymphatic: reports: No Symptoms Psychiatric: reports: No Symptoms Pain Intensity: 6 Physical Examination Vital Signs: Vital Signs Temperature 97.8 F 05/10/19 15:18 Pulse Rate 83 05/10/19 23:47 Respiratory Rate 18 05/10/19 23:47 Blood Pressure 132/70 05/10/19 23:47 O2 Sat by Pulse Oximetry (%) 96 05/10/19 23:47 Constitutional: Yes: Well Nourished, No Distress, Calm, Obese Eyes: Yes: WNL, Conjunctiva Clear, EOM Intact HENT: Yes: Atraumatic, Normocephalic, Other (Dry Mucous Membranes) Neck: Yes: WNL, Supple, Trachea Midline Cardiovascular: Yes: Regular Rate and Rhythm, S1, S2 Respiratory: Yes: WNL, Regular, CTA Bilaterally Gastrointestinal: Yes: Soft, Abdomen, Obese, Hyperactive Bowel Sounds, Tenderness (LLQ) ...Rectal Exam: Yes: WNL Renal/: Yes: WNL Breast(s): Yes: Gynecomastia Extremities: Yes: WNL Edema: Yes Edema: LLE: Trace, RLE: Trace Peripheral Pulses WNL: Yes Neurological: Yes: Alert, Oriented, Cran Nerves II-XII Intact, Pre-Existing Deficit ...Motor Strength: LUE (4/5), LLE (4/5), RUE (5/5), RLE (5/5) Psychiatric: Yes: WNL, Alert, Oriented Labs: CBC, BMP 05/10/19 17:30 05/10/19 17:30 Laboratory Results - last 24 hr 05/10/19 05/10/19 05/10/19 17:30 17:30 23:00 WBC 18.9 H RBC 4.81 Hgb 13.8 Hct 42.5 MCV 88.3 MCH 28.6 MCHC 32.4 RDW 15.3 Plt Count 360 D MPV 9.8 D Absolute Neuts (auto) 16.9 H Neutrophils % 89.5 H D Lymphocytes % 5.7 L D Monocytes % 4.6 Eosinophils % 0.0 D Basophils % 0.2 Nucleated RBC % 0 Sodium 139 Potassium 4.8 Chloride 105 Carbon Dioxide 25 Anion Gap 9 BUN 20.9 H Creatinine 0.8 Est GFR (CKD-EPI)AfAm 80.14 Est GFR (CKD-EPI)NonAf 69.14 Random Glucose 107 H Calcium 9.5 Total Bilirubin 0.7 AST 26 ALT 17 Alkaline Phosphatase 109 Total Protein 7.1 Albumin 4.0 Urine Color Yellow Urine Appearance Clear Urine pH 5.0 Ur Specific [place] 1.014 Urine Protein Negative Urine Glucose (UA) Negative Urine Ketones 1+ H Urine Blood Negative Urine Nitrite Negative Urine Bilirubin Negative Urine Urobilinogen 0.2 Ur Leukocyte Esterase Negative Intake & Output 05/08/19 05/09/19 05/10/19 05/11/19 23:59 23:59 23:59 23:59 Output Total 300 Balance -300 Weight 91.898 kg Current Medications Generic Name Dose Route Start Last Admin Trade Name Freq PRN Reason Stop Dose Admin Sodium Chloride 1,000 mls @ 0 mls/hr 05/10/19 17:00 05/10/19 17:34 Normal Saline - IV 1,000 mls/hr ASDIR THOMAS Administration Wide Open Ceftriaxone Sodium 1 gm/ 50 mls @ 200 mls/hr 05/12/19 10:00 Dextrose IVPB DAILY THOMAS Protocol Metronidazole 250 mg in 50 mls @ 50 mls/hr 05/11/19 10:00 Flagyl 250mg Premixed Ivpb - IVPB Q8H-IV THOMAS Dextrose/Sodium Chloride 1,000 mls @ 60 mls/hr 05/11/19 03:15 D5-1/2ns - IV ASDIR THOMAS Imaging - Results Chest X-ray: Image Reviewed Cat Scan: Report Reviewed, Image Reviewed EKG: Image Reviewed Problem List - Problems (1) Colitis Code(s): K52.9 - NONINFECTIVE GASTROENTERITIS AND COLITIS, UNSPECIFIED (2) Abdominal pain Code(s): R10.9 - UNSPECIFIED ABDOMINAL PAIN (3) Constipation Code(s): K59.00 - CONSTIPATION, UNSPECIFIED (4) CAD (coronary artery disease) Code(s): I25.10 - ATHSCL HEART DISEASE OF [place] CORONARY ARTERY W/O ANG PCTRS (5) GERD (gastroesophageal reflux disease) Code(s): K21.9 - GASTRO-ESOPHAGEAL REFLUX DISEASE WITHOUT ESOPHAGITIS (6) Hypertension Code(s): I10 - ESSENTIAL (PRIMARY) HYPERTENSION Qualifiers: Hypertension type: essential hypertension Qualified Code(s): I10 - Essential (primary) hypertension (7) Hyperlipidemia Code(s): E78.5 - HYPERLIPIDEMIA, UNSPECIFIED Assessment/Plan This is a 83 y/o woman with a PMHx of HTN, HLD, Diverticulitis, Hiatal Hernia, TIA. Admitted for Colitis, Abdominal Pain, Failure to Thrive for further evaluation of their emergent condition. Plan: # Colitis, Abdominal Pain, GERD CTAP report- interval development of mild concentric continuous wall thickening along left colon, mild pericolonic stranding. ? interval colitis vs ? acute/ subacute colitis. Interval enlargement of a cystic lesion within the uncinate process of the pancreas 2.5 x 1.7cm previously 1.2 x 1cm. Sigmoid diverticulosis. s/p Cholecystectomy. CBD dilatation. minimal intrahepatic bili tract dilatation +leukocytosis with neutrophilia Blood Cultures- pending Urine Culture-pending Ceftriaxone, Flagyl given in ED, will continue Appreciate GI consult Ranitidine NF, substitute Pepcid IV Monitor CBC, BMP Monitor vitals Ofirmev prn # Failure to Thrive Secondary to limited west means Patient eats only oatmeal daily Albumin 4.[address] eval Case Management consult Monitor BMP Monitor vitals # Leukocytosis Likely secondary to colitis Blood Culture-pending Monitor CBC Monitor vitals # Hypertension, Hyperlipidemia Stable Continue home medications with parameters Monitor BP Monitor LFTs FEN D51/2NS@60ml/hr Replete lytes prn Clear Diet DVT ppx OOB SCDs Heparin SQ Dispo: Requires Inpatient Care Visit type - Emergency Visit Emergency Visit: Yes ED Registration Date: 05/10/19 Care time: The patient presented to the Emergency Department on the above date and was hospitalized for further evaluation of their emergent condition. - New Patient This patient is new to me today: Yes Date on this admission: 05/11/19 - Critical Care Critical Care patient: No
[2019-05-11] MEDS: DEXTROSE 5%-0.45% SALINE 1,000 ML IV SCH (04:57)
[2019-05-11] MEDS: HEPARIN NA (PORCINE) 5,000 UNITS/ML 1ML VIAL SQ SCH ×3 (05:59→22:42)
[2019-05-11] MEDS: LEVOTHYROXINE NA 25 MCG TABLET (FP) PO SCH (06:01)
[2019-05-11 07:32] LABS: BASO % 0.8 % (0-2.0); EOS % 1.5 % (0-4.5); HEMOGLOBIN 11.8 GM/dL (10.7-15.3); LYMPH % 19.4 % (8-40); MCH 29.1 pg (25.7-33.7); MCHC 32.7 g/dl (32.0-36.0); MEAN PLT VOLUME 9.3 fl (7.5-11.1); MONO % 10.2 % (3.8-10.2); NEUT % 68.1 % (42.8-82.8); PLATELET COUNT 260 K/MM3 (134-434); RBC 4.05 M/mm3 (3.60-5.2); RDW 15.3 % (11.6-15.6); WHITE BLOOD COUNT 8.6 K/mm3 (4.0-10.0)
[2019-05-11 08:32] LABS: BLOOD UREA NITROGEN 14.4 mg/dL (7-18); CALCIUM 8.5 mg/dL (8.5-10.1); CREATININE 0.7 mg/dL (0.55-1.3); POTASSIUM 3.6 mmol/L (3.5-5.1)
[2019-05-11] MEDS ORDERED: PT OWN MED DRAWER 7, Y5N ONE ×3 (08:44→16:51)
[2019-05-11] MEDS: CALCIUM 500MG/VIT-D 200 UNITS COMBO TABLET (FP) PO SCH (09:19)
[2019-05-11] MEDS: FAMOTIDINE 20 MG/50 ML IVPB 20 MG/50 ML MG IVPB SCH ×2 (09:19→22:42)
[2019-05-11] MEDS: LISINOPRIL 20 MG TABLET (FP) PO SCH (09:19)
[2019-05-11] MEDS: metoPROLOL SUCCINATE 25 MG TAB.SR.24H (FP) PO SCH (09:20)
[2019-05-11] MEDS: CLOPIDOGREL BISULFATE 75 MG TABLET (FP) PO SCH (09:20)
--- NOTE | 2019-05-11 10:55 | PN ---
Progress Note (short form) - Note Progress Note: This is a 83 y/o woman with a PMHx of HTN, HLD, Diverticulitis, GERD, Hiatal Hernia. Who presents with constipation for 3 days. Patient feels better with no acute distress. abdominal pain is better. denies any nausea or vomiting. Vital Signs Temperature 98 F 05/11/19 05:59 Pulse Rate 62 05/11/19 05:59 Respiratory Rate 18 05/11/19 05:59 Blood Pressure 137/66 05/11/19 05:59 O2 Sat by Pulse Oximetry (%) 96 05/11/19 00:55 GENERAL: The patient is awake, alert, and fully oriented, in no acute distress. HEAD: Normal with no signs of trauma. EYES: PERRL, extraocular movements intact, sclera anicteric, conjunctiva clear. ENT: Ears normal, oropharynx clear without exudates, moist mucous membranes. NECK: Trachea midline, full range of motion, supple. LUNGS: Breath sounds equal, clear to auscultation bilaterally, no wheezes, no crackles, no accessory muscle use. HEART: Regular rate and rhythm, S1, S2 without murmur, rub or gallop. ABDOMEN: Soft, nontender, nondistended, normoactive bowel sounds, no guarding, no rebound, no hepatosplenomegaly, no masses. EXTREMITIES: 2+ pulses, warm, well-perfused, no edema. NEUROLOGICAL: Cranial nerves II through XII grossly intact. Normal speech, gait not observed. PSYCH: Normal mood, normal affect. SKIN: Warm, dry, normal turgor, no rashes or lesions noted CBCD WBC 8.6 K/mm3 (4.0-10.0) 05/11/19 06:15 RBC 4.05 M/mm3 (3.60-5.2) 05/11/19 06:15 Hgb 11.8 GM/dL (10.7-15.3) 05/11/19 06:15 Hct 36.0 % (32.4-45.2) D 05/11/19 06:15 MCV 89.0 fl (80-96) 05/11/19 06:15 MCHC 32.7 g/dl (32.0-36.0) 05/11/19 06:15 RDW 15.3 % (11.6-15.6) 05/11/19 06:15 Plt Count 260 K/MM3 (134-434) D 05/11/19 06:15 MPV 9.3 fl (7.5-11.1) 05/11/19 06:15 CMP Sodium 140 mmol/L (136-145) 05/11/19 06:15 Potassium 3.6 mmol/L (3.5-5.1) 05/11/19 06:15 Chloride 106 mmol/L (98-107) 05/11/19 06:15 Carbon Dioxide 24 mmol/L (21-32) 05/11/19 06:15 Anion Gap 10 MMOL/L (8-16) 05/11/19 06:15 BUN 14.4 mg/dL (7-18) 05/11/19 06:15 Creatinine 0.7 mg/dL (0.55-1.3) 05/11/19 06:15 Random Glucose 94 mg/dL (74-106) 05/11/19 06:15 Calcium 8.5 mg/dL (8.5-10.1) 05/11/19 06:15 Total Bilirubin 0.7 mg/dL (0.2-1) 05/10/19 17:30 AST 26 U/L (15-37) 05/10/19 17:30 ALT 17 U/L (13-61) 05/10/19 17:30 Alkaline Phosphatase 109 U/L (45-117) 05/10/19 17:30 Total Protein 7.1 g/dl (6.4-8.2) 05/10/19 17:30 Albumin 4.0 g/dl (3.4-5.0) 05/10/19 17:30 Current Medications Generic Name Dose Route Start Last Admin Trade Name Freq PRN Reason Stop Dose Admin Atorvastatin Calcium 40 mg 05/11/19 22:00 Lipitor - PO HS [facility] Calcium Carbonate/Cholecalciferol 1 tab 05/11/19 10:00 05/11/19 09:19 Os-Demetrio 500+D - PO 1 tab DAILY THOMAS Administration Clopidogrel Bisulfate 75 mg 05/11/19 10:00 05/11/19 09:20 Plavix - PO 75 mg DAILY THOMAS Administration Heparin Sodium (Porcine) 5,000 unit 05/11/19 06:00 05/11/19 05:59 Heparin - SQ 5,000 unit TID THOMAS Administration Sodium Chloride 1,000 mls @ 0 mls/hr 05/10/19 17:00 05/10/19 17:34 Normal Saline - IV 1,000 mls/hr ASDIR THOMAS Administration Wide Open Ceftriaxone Sodium 1 gm/ 50 mls @ 100 mls/hr 05/12/19 10:00 Dextrose IVPB DAILY THOMAS Protocol Metronidazole 250 mg in 50 mls @ 50 mls/hr 05/11/19 10:00 05/11/19 10:30 Flagyl 250mg Premixed Ivpb - IVPB 50 mls/hr Q8H-IV THOMAS Administration Dextrose/Sodium Chloride 1,000 mls @ 60 mls/hr 05/11/19 03:15 05/11/19 04:57 D5-1/2ns - IV 60 mls/hr ASDIR THOMAS Administration Famotidine/Sodium Chloride 20 mg in 50 mls @ 100 mls/hr 05/11/19 10:00 09:19 Pepcid 20 Mg Premixed Ivpb - IVPB 100 mls/hr BID THOMAS Administration Levothyroxine Sodium 25 mcg 05/11/19 07:00 05/11/19 06:01 Synthroid - PO 25 mcg DAILY@0700 THOMAS Administration Lisinopril 20 mg 05/11/19 10:00 05/11/19 09:19 Prinivil PO 20 mg DAILY THOMAS Administration Metoprolol Succinate 25 mg 05/11/19 10:00 05/11/19 09:20 Toprol Xl - PO 25 mg DAILY THOMAS Administration Home Medications Medication Instructions Recorded Clopidogrel Bisulfate [Plavix -] 75 mg PO DAILY 09/29/13 Atorvastatin Calcium 40 mg PO HS 04/12/18 Calcium Carbonate/Vitamin D3 1 each PO DAILY 04/12/18 [Calcium 500-Vit D3 400 Tablet] Lisinopril [Prinivil] 20 mg PO DAILY 04/12/18 Metoprolol Succinate 25 mg PO DAILY 04/12/18 Ranitidine HCl 150 mg PO DAILY 04/12/18 Cholecalciferol (Vitamin D3) 2,000 unit PO DAILY 05/10/19 [Vitamin D3] Cranberry Fruit Extract [Cranberry] 250 mg PO DAILY 05/10/19 Levothyroxine [Synthroid -] 25 mcg PO DAILY 05/10/19 Urine Test Results Urine Color Yellow 05/10/19 23:00 Urine Appearance Clear 05/10/19 23:00 Urine pH 5.0 (5.0-8.0) 05/10/19 23:00 Ur Specific [place] 1.014 (1.010-1.035) 05/10/19 23:00 Urine Protein Negative (NEGATIVE) 05/10/19 23:00 Urine Glucose (UA) Negative (NEGATIVE) 05/10/19 23:00 Urine Ketones 1+ (NEGATIVE) H 05/10/19 23:00 Urine Blood Negative (NEGATIVE) 05/10/19 23:00 Urine Nitrite Negative (NEGATIVE) 05/10/19 23:00 Urine Bilirubin Negative (NEGATIVE) 05/10/19 23:00 Ur Leukocyte Esterase Negative (NEGATIVE) 05/10/19 23:00 CXR: no acute pathology CT abdomen and pelvis: No fecal retention mild concentric continuous wall thickening is seen along the left colon from the level of the splenic flexure to the upper 3rd of the sigmoid region. Minimal pericolonic soft tissue stranding.Findings could be due to colitis . Uncinate process of the pancrea interval enlargment of the cystic lesion measuring 2.5x1.7cm previously 1.2x1cm s/p cholecystectomy , CBD measuring 0.9cm in diameter, minimal intrahepatic biliary tract dilataion. Assessment and plan: Patient is an 83yof with a PMHx of HTN, HLD, Diverticulitis, Hiatal Hernia, TIA. Admitted for acute colitis with abdominal Pain, Failure to Thrive. #Acute colitis with abdominal Pain with hx of GERD: Blood Cultures and ua cx is pending continue IV ceftriaxone, Flagyl , GI consult, on IV pepcid , rpeat cbc , cmp in am , GI consulted. # Failure to Thrive : calorie count, nutrition consult # Leukocytosis improved # Hypertension continue home meds, continue lisinopril, toprol xl # Hyperlipidemia: continue lipitor DVT ppx: SCDs, Heparin SQ Visit type - Emergency Visit Emergency Visit: Yes ED Registration Date: 05/10/19 Care time: The patient presented to the Emergency Department on the above date and was hospitalized for further evaluation of their emergent condition. - New Patient This patient is new to me today: Yes Date on this admission: 05/11/19 - Critical Care Critical Care patient: No - Discharge Referral Referred to [facility] Med [facility].C[facility] No
--- NOTE | 2019-05-11 11:44 | CON.GI ---
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 Pt reports developing worsening lower abdominal pain yesterday prompting ED evaluation. Also had difficulty moving bowels with hard stools and felt nauseated with retching. Denies vomiting, fever or chills. Appetite has been poor recently she attributes to loss of her son. At baseline reports moving bowels every 2 days, takes metamucil and enemas prn with good relief. States she had shepards pie on thursday-thursday when symptoms developed. Also taking frequent courses of antibiotics for UTI, unsure which one, last dose few days ago. Now feeling better, abdominal pain resolved, however notes loose stool, had 2 episodes since admission. No blood. States she had colonoscopy approximately 1 year ago, unclear where or which provider. On review of records, colonoscopy in 10/2011 for altered bowel pattern , revealing normal TI, lipoma at ICV and sigmoid colon, sigmoid diverticulosis and internal hemorrhoids, biopsies negative for microscopic colitis. No known family h/o colon ca. 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: Yes: TIA Cardio/Vascular: Yes: CAD, HTN, Hyperlipdemia Gastrointestinal: Yes: Diverticulosis, GERD, Hiatal Hernia Musculoskeletal: Yes: Osteoarthritis - Past Surgical History Past Surgical History: Yes: Appendectomy, Cholecystectomy, , Joint Replacement (b/l Knee replacement), Laminectomy, Tonsillectomy - Alcohol/Substance Use Hx Alcohol Use: No History of Substance Use: reports: None - Smoking History Smoking history: Never smoked Have you smoked in the past 12 months: No Aproximately how many cigarettes per day: 0 - Social History ADL: Independent 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 History of Recent Travel: No Home Medications - Allergies Allergies/Adverse Reactions: Allergies Allergy/AdvReac Type Severity Reaction Status Date / Time aspirin Allergy Verified 09/11/18 08:28 [From Aspirin Regimen [place]/Calcium] diazepam [From Valium] Allergy Verified 09/11/18 08:28 sumatriptan [From Imitrex] Allergy unknown Verified 09/11/18 08:28 - Home Medications Home Medications: Ambulatory Orders Clopidogrel Bisulfate [Plavix -] 75 mg PO DAILY 09/29/13 Atorvastatin Calcium 40 mg PO HS 04/12/18 Calcium Carbonate/Vitamin D3 [Calcium 500-Vit D3 400 Tablet] 1 each PO DAILY 02/18 Lisinopril [Prinivil] 20 mg PO DAILY 04/12/18 Metoprolol Succinate 25 mg PO DAILY 04/12/18 Ranitidine HCl 150 mg PO DAILY 04/12/18 Cholecalciferol (Vitamin D3) [Vitamin D3] 2,000 unit PO DAILY 05/10/19 Cranberry Fruit Extract [Cranberry] 250 mg PO DAILY 05/10/19 Levothyroxine [Synthroid -] 25 mcg PO DAILY 05/10/19 Review of Systems - Review of Systems Constitutional: reports: No Symptoms HENT: reports: No Symptoms Cardiovascular: reports: No Symptoms Respiratory: reports: No Symptoms Gastrointestinal: reports: Diarrhea Physical Exam-GI Vital Signs: Vital Signs Temperature 97.9 F 05/11/19 08:30 Pulse Rate 71 05/11/19 08:30 Respiratory Rate 20 05/11/19 08:30 Blood Pressure 153/70 05/11/19 08:30 O2 Sat by Pulse Oximetry (%) 99 05/11/19 09:00 Constitutional: Yes: Well Nourished, No Distress, Calm, Other (Appears well, comfortable) Cardiovascular: Yes: WNL, Regular Rate and Rhythm Respiratory: Yes: WNL, Regular, CTA Bilaterally ...Palpate: Yes: Other (Abd soft, nontender, non distended, no rebound, guarding or rigidity +RUQ scar) Labs: CBC, BMP 05/11/19 06:15 05/11/19 06:15 Imaging - Results Cat Scan: Report Reviewed, Image Reviewed Problem List - Problems (1) Abdominal pain Assessment/Plan: 83yo female h/o HTN, cholecystectomy, appendectomy, 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 Initially constipation now with looser stool and leucocytosis. Abdominal pain now resolved. Possible etiologies including infectious in setting of possible food contamination and recent antibiotic use, vs ischemic vs inflammatory, cannot exclude malignancy though less likely. last colonoscopy available in records from 2011. -Continue supportive measures -Diet as tolerated -Check stool studies including C difficile, ova/parasites, cultures -Follow up blood and urine cultures -Continue antibiotics for now -Discussed possible colonoscopy vs flex sig to evaluate CT findings pending stool studies however would need to clarify if plavix could be safely held. Pt is also reluctant at this time and wants to avoid further colonoscopies. Code(s): R10.9 - UNSPECIFIED ABDOMINAL PAIN (2) Pancreatic lesion Assessment/Plan: CT also revealing ~2.5cm lesion at pancreatic uncinate process increased from prior exam with mild CBD dilation (though likely post padmini) and no obvious PD dilation. LFTs normal. -Recommend MRCP to further evaluate Code(s): K86.9 - DISEASE OF PANCREAS, UNSPECIFIED
[2019-05-11] MEDS: SODIUM CHLORIDE 1,000 ML IV SCH (17:09)
[2019-05-11] MEDS: ATORVASTATIN CA 40 MG TABLET (FP) PO SCH (22:41)
[2019-05-12] MEDS ORDERED: PT OWN MED DRAWER 7, Y5N ONE (01:27)
[2019-05-12] MEDS: DEXTROSE 5%-0.45% SALINE 1,000 ML IV SCH ×3 (01:29→22:42)
[2019-05-12] MEDS: LEVOTHYROXINE NA 25 MCG TABLET (FP) PO SCH (06:34)
[2019-05-12] MEDS: HEPARIN NA (PORCINE) 5,000 UNITS/ML 1ML VIAL SQ SCH ×3 (06:34→22:43)
[2019-05-12 07:59] LABS: BASO % 0.8 % (0-2.0); HEMATOCRIT 36.6 % (32.4-45.2); LYMPH % 18.7 % (8-40); MCH 29.2 pg (25.7-33.7); MCHC 32.9 g/dl (32.0-36.0); MEAN CELL VOLUME 88.6 fl (80-96); MEAN PLT VOLUME 9.5 fl (7.5-11.1); NEUT % 72.5 % (42.8-82.8); PLATELET COUNT 261 K/MM3 (134-434); RBC 4.13 M/mm3 (3.60-5.2); RDW 15.3 % (11.6-15.6); WHITE BLOOD COUNT 7.2 K/mm3 (4.0-10.0)
[2019-05-12 08:25] LABS: ALBUMIN 3.3 g/dl (3.4-5.0); BILIRUBIN,TOTAL 0.5 mg/dL (0.2-1); BLOOD UREA NITROGEN 6.2 mg/dL (7-18); CALCIUM 8.6 mg/dL (8.5-10.1); CREATININE 0.7 mg/dL (0.55-1.3); MAGNESIUM 1.9 mg/dL (1.8-2.4); PHOSPHOROUS 3.4 mg/dL (2.5-4.9); POTASSIUM 3.8 mmol/L (3.5-5.1); TOT PROT 5.8 g/dl (6.4-8.2)
[2019-05-12] MEDS ORDERED: cefTRIAXone SODIUM 1 GM VIAL ONE (09:54)
[2019-05-12] MEDS ORDERED: DEXTROSE 5%-WATER - 50 ML IVPB ONE (09:54)
[2019-05-12] MEDS: FAMOTIDINE 20 MG/50 ML IVPB 20 MG/50 ML MG IVPB SCH ×2 (09:57→22:43)
[2019-05-12] MEDS: CEFTRIAXONE 1 GM in DEXTROSE 5%-WATER - 50 ML IVPB SCH (09:57)
[2019-05-12] MEDS: LISINOPRIL 20 MG TABLET (FP) PO SCH (10:01)
[2019-05-12] MEDS: metoPROLOL SUCCINATE 25 MG TAB.SR.24H (FP) PO SCH (10:01)
[2019-05-12] MEDS: CALCIUM 500MG/VIT-D 200 UNITS COMBO TABLET (FP) PO SCH (10:01)
[2019-05-12] MEDS: CLOPIDOGREL BISULFATE 75 MG TABLET (FP) PO SCH (10:01)
[2019-05-12] MEDS: ACETAMINOPHEN 325 MG TABLET (FP) PO PRN (11:23)
[2019-05-12 12:58] VITALS: BMI 33.6
--- NOTE | 2019-05-12 18:55 | PN ---
Progress Note, Physician Chief Complaint: abdominal pain History of Present Illness: feeling better, less pain. requesting pain meds for arthritis - Current Medication List Current Medications: Active Medications Acetaminophen (Tylenol -) 650 mg PO Q4H PRN PRN Reason: PAIN Last Admin: 05/12/19 11:23 Dose: 650 mg Atorvastatin Calcium (Lipitor -) 40 mg PO HS [facility] Last Admin: 05/11/19 22:41 Dose: 40 mg Calcium Carbonate/Cholecalciferol (Os-Demetrio 500+D -) 1 tab PO DAILY [facility] Last Admin: 05/12/19 10:01 Dose: 1 tab Clopidogrel Bisulfate (Plavix -) 75 mg PO DAILY [facility] Last Admin: 05/12/19 10:01 Dose: 75 mg Heparin Sodium (Porcine) (Heparin -) 5,000 unit SQ TID [facility] Last Admin: 05/12/19 13:08 Dose: 5,000 unit Sodium Chloride (Normal Saline -) 1,000 mls @ 0 mls/hr IV ASDIR [facility] Last Admin: 05/11/19 17:09 Dose: Not Given Ceftriaxone Sodium 1 gm/ (Dextrose) 50 mls @ 100 mls/hr IVPB DAILY [facility]; Protocol Last Admin: 05/12/19 09:57 Dose: 100 mls/hr Metronidazole (Flagyl 250mg Premixed Ivpb -) 250 mg in 50 mls @ 50 mls/hr IVPB Q8H-IV [facility] Last Admin: 05/12/19 17:47 Dose: 50 mls/hr Dextrose/Sodium Chloride (D5-1/2ns -) 1,000 mls @ 60 mls/hr IV ASDIR [facility] Last Admin: 05/12/19 06:33 Dose: Not Given Famotidine/Sodium Chloride (Pepcid 20 Mg Premixed Ivpb -) 20 mg in 50 mls @ 100 mls/hr IVPB BID [facility] Last Admin: 05/12/19 09:57 Dose: 100 mls/hr Levothyroxine Sodium (Synthroid -) 25 mcg PO DAILY@0700 [facility] Last Admin: 05/12/19 06:34 Dose: 25 mcg Lisinopril (Prinivil) 20 mg PO DAILY [facility] Last Admin: 05/12/19 10:01 Dose: 20 mg Metoprolol Succinate (Toprol Xl -) 25 mg PO DAILY [facility] Last Admin: 05/12/19 10:01 Dose: 25 mg - Objective Vital Signs: Vital Signs Temperature 98.3 F 05/12/19 13:38 Pulse Rate 71 05/12/19 13:38 Respiratory Rate 20 05/12/19 13:38 Blood Pressure 132/75 05/12/19 13:38 O2 Sat by Pulse Oximetry (%) 98 05/12/19 09:00 Constitutional: Yes: Well Nourished, No Distress, Calm HENT: Yes: WNL, Atraumatic, Normocephalic Cardiovascular: Yes: WNL, Regular Rate and Rhythm Respiratory: Yes: WNL, Regular, CTA Bilaterally Gastrointestinal: Yes: WNL, Normal Bowel Sounds, Soft Musculoskeletal: Yes: WNL Extremities: Yes: WNL Edema: No Labs: CBC, BMP 05/12/19 06:55 05/12/19 06:55 Problem List - Problems (1) Abdominal pain Code(s): R10.9 - UNSPECIFIED ABDOMINAL PAIN (2) Colitis Code(s): K52.9 - NONINFECTIVE GASTROENTERITIS AND COLITIS, UNSPECIFIED (3) Pancreatic lesion Code(s): K86.9 - DISEASE OF PANCREAS, UNSPECIFIED (4) Acute urinary tract infection Code(s): N39.0 - URINARY TRACT INFECTION, SITE NOT SPECIFIED (5) CAD (coronary artery disease) Code(s): I25.10 - ATHSCL HEART DISEASE OF [place] CORONARY ARTERY W/O ANG PCTRS (6) GERD (gastroesophageal reflux disease) Code(s): K21.9 - GASTRO-ESOPHAGEAL REFLUX DISEASE WITHOUT ESOPHAGITIS (7) Hyperlipidemia Code(s): E78.5 - HYPERLIPIDEMIA, UNSPECIFIED (8) Hypertension Code(s): I10 - ESSENTIAL (PRIMARY) HYPERTENSION Qualifiers: Hypertension type: essential hypertension Qualified Code(s): I10 - Essential (primary) hypertension Assessment/Plan Assessment: 83 y/o f with a PMHx of HTN, HLD, Diverticulitis, Hiatal Hernia, TIA Acute colitis GERD FTT HTN HLD Plan: -c/w iv abx -MRCP pending -PPI -GI eval appreciated -c/w bp meds and statin
--- NOTE | 2019-05-12 19:57 | PN.GI ---
GI Progress Note Subjective: abdominal pain resolved, pancreatic mass by CT MRI pending - Objective Vital Signs: Vital Signs Temperature 98.8 F 05/12/19 19:00 Pulse Rate 65 05/12/19 19:00 Respiratory Rate 05/12/19 19:00 Blood Pressure 134/73 05/12/19 19:00 O2 Sat by Pulse Oximetry (%) 98 05/12/19 09:00 Constitutional: Well Nourished Eyes: Yes: Conjunctiva Clear, Occular Prosthesis Neck: Yes: Supple Cardiovascular: Yes: Regular Rate and Rhythm Respiratory: Yes: CTA Bilaterally ...Palpate: Yes: Soft. No: Firm/Rigid, Guarding, Hepatomegaly, Mass, Pulsatile Mass, Splenomegaly, Tenderness Labs: CBC, BMP 05/12/19 06:55 05/12/19 06:55 Problem List - Problems (1) Pancreatic neoplasm Assessment/Plan: R> check cea ca19-9 if not done yet MRI pending Dr Reis will resume care in am Code(s): D49.0 - NEOPLASM OF UNSPECIFIED BEHAVIOR OF DIGESTIVE SYSTEM
[2019-05-12] MEDS: ATORVASTATIN CA 40 MG TABLET (FP) PO SCH (22:43)
[2019-05-13] MEDS: ACETAMINOPHEN 325 MG TABLET (FP) PO PRN ×2 (01:46→15:40)
[2019-05-13] MEDS: DEXTROSE 5%-0.45% SALINE 1,000 ML IV SCH (05:56)
[2019-05-13] MEDS: LEVOTHYROXINE NA 25 MCG TABLET (FP) PO SCH (06:46)
[2019-05-13] MEDS: HEPARIN NA (PORCINE) 5,000 UNITS/ML 1ML VIAL SQ SCH ×3 (06:46→21:03)
[2019-05-13] MEDS ORDERED: cefTRIAXone SODIUM 1 GM VIAL ONE (08:32)
[2019-05-13] MEDS ORDERED: DEXTROSE 5%-WATER - 50 ML IVPB ONE (08:32)
[2019-05-13] MEDS: SODIUM CHLORIDE 1,000 ML IV SCH (09:01)
[2019-05-13] MEDS: FAMOTIDINE 20 MG/50 ML IVPB 20 MG/50 ML MG IVPB SCH ×2 (09:24→21:02)
[2019-05-13] MEDS: CEFTRIAXONE 1 GM in DEXTROSE 5%-WATER - 50 ML IVPB SCH (09:24)
[2019-05-13] MEDS: CALCIUM 500MG/VIT-D 200 UNITS COMBO TABLET (FP) PO SCH (09:24)
[2019-05-13] MEDS: LISINOPRIL 20 MG TABLET (FP) PO SCH (09:24)
[2019-05-13] MEDS: metoPROLOL SUCCINATE 25 MG TAB.SR.24H (FP) PO SCH (09:24)
[2019-05-13] MEDS: CLOPIDOGREL BISULFATE 75 MG TABLET (FP) PO SCH (09:24)
--- NOTE | 2019-05-13 09:36 | PN ---
Progress Note (short form) - Note Progress Note: She is comfortable. Had a bowel movement which is soft but no diarrhea no nausea vomiting no fever no chills. She has no nausea vomiting no fever no chills. 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 Vital Signs Period Temp Pulse Resp BP Sys/Ng Pulse Ox Last 24 Hr 98.3 F-98.8 F 65-77 16-20 113-154/72-75 98 Examination HEENT NAD Neck supple negative Lungs clear Abdomen distended but soft nontender bowel sounds are normal extremities negative cyanosis clubbing edema Neuro she is alert awake oriented and ambulatory. CBC, BMP 05/12/19 06:55 05/12/19 06:55 CXR: no acute pathology CT abdomen and pelvis: No fecal retention mild concentric continuous wall thickening is seen along the left colon from the level of the splenic flexure to the upper 3rd of the sigmoid region. Minimal pericolonic soft tissue stranding.Findings could be due to colitis . Uncinate process of the pancrea interval enlargment of the cystic lesion measuring 2.5x1.7cm previously 1.2x1cm s/p cholecystectomy , CBD measuring 0.9cm in diameter, minimal intrahepatic biliary tract dilataion. Assessment and plan: Patient is an 83yof with a PMHx of HTN, HLD, Diverticulitis, Hiatal Hernia, TIA. Admitted for acute colitis with abdominal Pain, Failure to Thrive. #Acute colitis She is eating well will stop the IV fluids change diet to regular and will follow-up on that # Failure to Thrive : Better # Hypertension continue home meds, continue lisinopril, toprol xl # Hyperlipidemia: continue lipitor DVT ppx: SCDs, Heparin SQ Pancreatic mass. MRI of the pancreas has been ordered but it is not done hopefully it is done today. Depending on the result of MRI of the pancreas and the type of the mass in the pancreas if it is benign or distinct cyst she can go home tomorrow if it tumor she needs further work-up. Visit type - Emergency Visit Emergency Visit: Yes ED Registration Date: 05/10/19 Care time: The patient presented to the Emergency Department on the above date and was hospitalized for further evaluation of their emergent condition. - New Patient This patient is new to me today: Yes Date on this admission: 05/13/19 - Critical Care Critical Care patient: No - Discharge Referral Referred to [facility] Med [facility] No
[2019-05-13 15:20] LABS: BASO % 0.8 % (0-2.0); HEMATOCRIT 39.1 % (32.4-45.2); HEMOGLOBIN 12.7 GM/dL (10.7-15.3); LYMPH % 20.9 % (8-40); MCH 28.8 pg (25.7-33.7); MCHC 32.5 g/dl (32.0-36.0); MEAN CELL VOLUME 88.4 fl (80-96); MEAN PLT VOLUME 9.4 fl (7.5-11.1); MONO % 12.6 % (3.8-10.2); NEUT % 61.7 % (42.8-82.8); PLATELET COUNT 295 K/MM3 (134-434); RBC 4.43 M/mm3 (3.60-5.2); RDW 15.1 % (11.6-15.6)
[2019-05-13 15:50] LABS: BLOOD UREA NITROGEN 4.1 mg/dL (7-18); CALCIUM 8.9 mg/dL (8.5-10.1); CREATININE 0.8 mg/dL (0.55-1.3); POTASSIUM 3.8 mmol/L (3.5-5.1)
[2019-05-13] MEDS ORDERED: PT OWN MED DRAWER 7, Y5N ONE (16:37)
[2019-05-13] MEDS: ATORVASTATIN CA 40 MG TABLET (FP) PO SCH (21:03)
[2019-05-14] MEDS: HEPARIN NA (PORCINE) 5,000 UNITS/ML 1ML VIAL SQ SCH ×2 (05:09→14:19)
[2019-05-14] MEDS: LEVOTHYROXINE NA 25 MCG TABLET (FP) PO SCH (06:06)
--- NOTE | 2019-05-14 08:24 | PN ---
Progress Note (short form) - Note Progress Note: NO NEW COMPLAINTS CHART REVEIWED VSS NAD AAO S1S2 CLEAR LUNGS BS, NONTENDER NO EDEMA REC: F/U IMAGING FURTHER REC PENDING IMAGING RESULTS
[2019-05-14] MEDS ORDERED: cefTRIAXone SODIUM 1 GM VIAL ONE (09:33)
[2019-05-14] MEDS ORDERED: DEXTROSE 5%-WATER - 50 ML IVPB ONE (09:34)
[2019-05-14] MEDS: FAMOTIDINE 20 MG/50 ML IVPB 20 MG/50 ML MG IVPB SCH (10:28)
[2019-05-14] MEDS: CEFTRIAXONE 1 GM in DEXTROSE 5%-WATER - 50 ML IVPB SCH (10:29)
[2019-05-14] MEDS: CALCIUM 500MG/VIT-D 200 UNITS COMBO TABLET (FP) PO SCH (10:30)
[2019-05-14] MEDS: metoPROLOL SUCCINATE 25 MG TAB.SR.24H (FP) PO SCH (10:30)
[2019-05-14] MEDS: ACETAMINOPHEN 325 MG TABLET (FP) PO PRN (10:30)
[2019-05-14] MEDS: CLOPIDOGREL BISULFATE 75 MG TABLET (FP) PO SCH (10:30)
[2019-05-14] MEDS: LISINOPRIL 20 MG TABLET (FP) PO SCH (10:30)
--- NOTE | 2019-05-14 13:01 | PN ---
Progress Note, Physician - Current Medication List Current Medications: Active Medications Acetaminophen (Tylenol -) 650 mg PO Q4H PRN PRN Reason: PAIN Last Admin: 05/14/19 10:30 Dose: 650 mg Atorvastatin Calcium (Lipitor -) 40 mg PO HS [facility] Last Admin: 05/13/19 21:03 Dose: 40 mg Calcium Carbonate/Cholecalciferol (Os-Demetrio 500+D -) 1 tab PO DAILY [facility] Last Admin: 05/14/19 10:30 Dose: 1 tab Clopidogrel Bisulfate (Plavix -) 75 mg PO DAILY [facility] Last Admin: 05/14/19 10:30 Dose: 75 mg Heparin Sodium (Porcine) (Heparin -) 5,000 unit SQ TID [facility] Last Admin: 05/14/19 05:09 Dose: 5,000 unit Ceftriaxone Sodium 1 gm/ (Dextrose) 50 mls @ 100 mls/hr IVPB DAILY [facility]; Protocol Last Admin: 05/14/19 10:29 Dose: 100 mls/hr Metronidazole (Flagyl 250mg Premixed Ivpb -) 250 mg in 50 mls @ 50 mls/hr IVPB Q8H-IV [facility] Last Admin: 05/14/19 10:29 Dose: 50 mls/hr Famotidine/Sodium Chloride (Pepcid 20 Mg Premixed Ivpb -) 20 mg in 50 mls @ 100 mls/hr IVPB BID [facility] Last Admin: 05/14/19 10:28 Dose: 100 mls/hr Levothyroxine Sodium (Synthroid -) 25 mcg PO DAILY@0700 [facility] Last Admin: 05/14/19 06:06 Dose: 25 mcg Lisinopril (Prinivil) 20 mg PO DAILY [facility] Last Admin: 05/14/19 10:30 Dose: 20 mg Metoprolol Succinate (Toprol Xl -) 25 mg PO DAILY [facility] Last Admin: 05/14/19 10:30 Dose: 25 mg - Objective Vital Signs: Vital Signs Temperature 98.8 F 05/14/19 09:58 Pulse Rate 65 05/14/19 09:58 Respiratory Rate 20 05/14/19 09:58 Blood Pressure 147/63 05/14/19 09:58 O2 Sat by Pulse Oximetry (%) 98 05/13/19 21:00 Labs: CBC, BMP 05/13/19 14:48 05/13/19 14:48 Problem List - Problems (1) Abdominal pain Code(s): R10.9 - UNSPECIFIED ABDOMINAL PAIN (2) Colitis Code(s): K52.9 - NONINFECTIVE GASTROENTERITIS AND COLITIS, UNSPECIFIED (3) Pancreatic lesion Code(s): K86.9 - DISEASE OF PANCREAS, UNSPECIFIED (4) Acute urinary tract infection Code(s): N39.0 - URINARY TRACT INFECTION, SITE NOT SPECIFIED (5) CAD (coronary artery disease) Code(s): I25.10 - ATHSCL HEART DISEASE OF [place] CORONARY ARTERY W/O ANG PCTRS (6) GERD (gastroesophageal reflux disease) Code(s): K21.9 - GASTRO-ESOPHAGEAL REFLUX DISEASE WITHOUT ESOPHAGITIS (7) Hyperlipidemia Code(s): E78.5 - HYPERLIPIDEMIA, UNSPECIFIED (8) Hypertension Code(s): I10 - ESSENTIAL (PRIMARY) HYPERTENSION Qualifiers: Hypertension type: essential hypertension Qualified Code(s): I10 - Essential (primary) hypertension
[2019-05-14 14:20] VITALS: BP 118/74; PULSE 76; TEMP 98.5
--- NOTE | 2019-05-14 15:10 | DS ---
Physical Examination Vital Signs: Vital Signs Temperature 98.5 F 05/14/19 14:14 Pulse Rate 76 05/14/19 14:14 Respiratory Rate 20 05/14/19 14:14 Blood Pressure 118/74 05/14/19 14:14 O2 Sat by Pulse Oximetry (%) 96 05/14/19 09:00 Findings/Remarks: Seen and examined at bedside. No acute events overnight. Had MRI awaiting results. Eating and drinking well, no complaints. Constitutional: Yes: Well Nourished, No Distress, Calm Cardiovascular: Yes: WNL, Regular Rate and Rhythm Respiratory: Yes: WNL, Regular, CTA Bilaterally Gastrointestinal: Yes: WNL, Normal Bowel Sounds, Soft, Abdomen, Obese Extremities: Yes: WNL Edema: No Labs: CBC, BMP 05/13/19 14:48 05/13/19 14:48 Discharge Summary Problems reviewed: Yes Reason For Visit: COLITIS, ABD PAIN, CONSTIPATION Current Active Problems Abdominal pain (Acute) Colitis (Acute) Constipation (Acute) Pancreatic lesion (Acute) Pancreatic neoplasm (Acute) Hospital Course: Assessment: 83 y/o f with a PMHx of HTN, HLD, Diverticulitis, Hiatal Hernia, TIA presented with abdominal pain Questionable Acute colitis Pancreatic Mass GERD FTT HTN HLD Plan: -patient was started on abx -MRCP with complex cystic lesion, no malignancy identified -PPI -GI eval appreciated, cleared for DC home with close outpatient GI followup, discussed with Dr. Mcclain -patient needs followup imaging, likely MRI abdomen with contrast, patient is aware and GI information is given Condition: Stable - Instructions Diet, Activity, Other Instructions: PATIENT NEEDS TO FOLLOW-UP WITH GASTROENTEROLOGY, DR. MCCLAIN FOR FOLLOW-UP ON PANCREATIC CYST Referrals: Zeke Daniel MD [Primary Care Provider] - Leonila Mcclain DO [Staff Physician] - Disposition: HOME - Home Medications Comprehensive Discharge Medication List: Ambulatory Orders RX: Clopidogrel Bisulfate [Plavix -] 75 mg PO DAILY 09/29/13 RX: Atorvastatin Calcium 40 mg PO HS 04/12/18 RX: Calcium Carbonate/Vitamin D3 [Calcium 500-Vit D3 400 Tablet] 1 each PO DAILY 04/12/18 RX: Lisinopril [Prinivil] 20 mg PO DAILY 04/12/18 RX: Metoprolol Succinate 25 mg PO DAILY 04/12/18 RX: Ranitidine HCl 150 mg PO DAILY 04/12/18 RX: Cholecalciferol (Vitamin D3) [Vitamin D3] 2,000 unit PO DAILY 05/10/19 RX: Cranberry Fruit Extract [Cranberry] 250 mg PO DAILY 05/10/19 RX: Levothyroxine [Synthroid -] 25 mcg PO DAILY 05/10/19 RX: Calcium 500Mg/Vit-D 200 Units [Os-Demetrio 500+D -] 1 tab PO DAILY tab 05/14/19
== END 2019-05-14 16:13 | disposition home health service (06) | DRG 392 ==
LOC: JER 15:10 → JERBED 23:54 → J7W 05-11 01:12
PROVIDERS: ADMIT Internal Medicine; ATTEND Internal Medicine
DX: K52.89 Other specified noninfective gastroenteritis and colitis (principal); I10 Essential (primary) hypertension; E78.5 Hyperlipidemia, unspecified; K44.9 Diaphragmatic hernia without obstruction or gangrene; K21.9 Gastro-esophageal reflux disease without esophagitis; D72.829 Elevated white blood cell count, unspecified; Z96.653 Presence of artificial knee joint, bilateral; K57.30 Diverticulosis of large intestine without perforation or abscess without bleeding; K82.8 Other specified diseases of gallbladder; I25.10 Atherosclerotic heart disease of native coronary artery without angina pectoris; R62.7 Adult failure to thrive; Z68.33 Body mass index [BMI] 33.0-33.9, adult; K64.8 Other hemorrhoids; R10.9 Unspecified abdominal pain; D49.0 Neoplasm of unspecified behavior of digestive system; Z86.73 Personal history of transient ischemic attack (TIA), and cerebral infarction without residual deficits
CPT/HCPCS: 36415; 71045-TC-FY; 74177-TC; 74181-TC; 80048; 80053; 81003; 83735; 84100; 85025; 87045; 87046; 87077; 87086; 87324; 87449; 97116-GP; 97162-GP; 99285-25; J0131; J1644; J7030; Q9967

== ENCOUNTER 2020-05-10 17:22 | Emergency (ER) | payer OTHER, MEDICARE ==
[2020-05-10 17:52] VITALS: BP 132/70; PULSE 104; TEMP 98.7; BMI 25.7
== END 2020-05-10 21:31 | disposition home or self-care (01) ==
LOC: JER 17:22
PROC: 3E033NZ Introduction of Analgesics, Hypnotics, Sedatives into Peripheral Vein, Percutaneous Approach (ICD-10-PCS; principal; 2020-05-10)
DX: Z11.52 Encounter for screening for COVID-19 (principal)
CPT/HCPCS: 87426; 99284-25

== ENCOUNTER 2020-05-12 12:01 | Emergency (ER) | payer OTHER, MEDICARE | END 2020-05-12 14:44 | disposition home or self-care (01) | LOC: JER 12:01 | DX: U07.1 COVID-19 (principal) | CPT/HCPCS: 99281-25 ==

== ENCOUNTER 2023-05-21 11:20 | Inpatient (IN) | payer OTHER, MEDICARE ==
[2023-05-21 12:52] LABS: BASO % 1.1 % (0-2.0); EOS % 0.4 % (0-4.5); HEMOGLOBIN 12.9 GM/dL (10.7-15.3); LYMPH % 13.8 % (8-40); MCH 29.3 pg (25.7-33.7); MCHC 33.1 g/dl (32.0-36.0); MEAN CELL VOLUME 88.8 fl (80-96); MEAN PLT VOLUME 8.5 fl (7.5-11.1); MONO % 9.4 % (3.8-10.2); NEUT % 75.3 % (42.8-82.8); PLATELET COUNT 297 10^3/uL (134-434); RBC 4.39 M/mm3 (3.60-5.2); RDW 14.4 % (11.6-15.6); WHITE BLOOD COUNT 11.1 K/mm3 (4.0-10.0)
[2023-05-21 13:17] LABS: EPI CELLS 7 /uL (0-25.1); HYALINE CASTS 0 /uL (0-3.1); PH,URINE 5.5 (5.0-8.0); URINE APPEARANCE CLEAR; URINE BACTERIA >9,000 /uL (0-1359); URINE BILIRUBIN NEGATIVE (NEGATIVE); URINE COLOR YELLOW; URINE GLUCOSE (UA) NEGATIVE (NEGATIVE); URINE KETONE NEGATIVE (NEGATIVE); URINE LEUK ESTERASE TRACE (NEGATIVE); URINE NITRITE POSITIVE (NEGATIVE); URINE PROTEIN NEGATIVE (NEGATIVE); URINE WBC 42 /uL (0-25.8)
[2023-05-21 13:21] LABS: POTASSIUM 4.4 mmol/L (3.5-5.1)
[2023-05-21 13:23] LABS: CALCIUM 9.7 mg/dL (8.5-10.1)
[2023-05-21 13:24] LABS: ALBUMIN 3.9 g/dl (3.4-5.0); BLOOD UREA NITROGEN 20.1 mg/dL (7-18)
[2023-05-21 13:28] LABS: CREATININE 0.9 mg/dL (0.55-1.3)
[2023-05-21 13:29] LABS: BILIRUBIN,TOTAL 0.9 mg/dL (0.2-1)
[2023-05-21] MEDS ORDERED: CEFTRIAXONE 1 GM in DEXTROSE 5%-WATER - 50 ML IVPB ONE (13:34)
[2023-05-21 13:42] LABS: URINE RBC 44.8 /uL (0-23.9)
[2023-05-21] MEDS ORDERED: CEFTRIAXONE 1 GM/50 ML BAG ONE (14:21)
[2023-05-21 18:48] VITALS: BMI 26.4
[2023-05-21] MEDS: HEPARIN NA (PORCINE) 5,000 UNITS/ML 1ML VIAL SQ SCH (22:16)
[2023-05-21] MEDS: ACETAMINOPHEN 325 MG TABLET (FP) PO PRN (22:17)
[2023-05-22] MEDS: LEVOTHYROXINE NA 25 MCG TABLET (FP) PO SCH (06:22)
[2023-05-22] MEDS: HEPARIN NA (PORCINE) 5,000 UNITS/ML 1ML VIAL SQ SCH ×2 (09:54→22:12)
[2023-05-22] MEDS: LISINOPRIL 20 MG TABLET PO SCH (09:55)
[2023-05-22] MEDS: LIDOCAINE 4% PATCH TP SCH (09:55)
[2023-05-22] MEDS: CEFTRIAXONE 1 GM in DEXTROSE 5%-WATER - 50 ML IVPB SCH (09:55)
[2023-05-22 10:26] LABS: BASO % 1.1 % (0-2.0); EOS % 3.2 % (0-4.5); HEMATOCRIT 36.3 % (32.4-45.2); HEMOGLOBIN 12.2 GM/dL (10.7-15.3); LYMPH % 36.2 % (8-40); MCH 29.3 pg (25.7-33.7); MCHC 33.5 g/dl (32.0-36.0); MEAN CELL VOLUME 87.6 fl (80-96); MEAN PLT VOLUME 8.7 fl (7.5-11.1); MONO % 10.9 % (3.8-10.2); NEUT % 48.6 % (42.8-82.8); PLATELET COUNT 261 10^3/uL (134-434); RBC 4.14 M/mm3 (3.60-5.2); RDW 14.8 % (11.6-15.6); WHITE BLOOD COUNT 6.5 K/mm3 (4.0-10.0)
[2023-05-22 10:54] LABS: ALBUMIN 3.4 g/dl (3.4-5.0); BLOOD UREA NITROGEN 21.6 mg/dL (7-18); CREATININE 0.7 mg/dL (0.55-1.3)
[2023-05-22 10:55] LABS: BILIRUBIN,TOTAL 0.6 mg/dL (0.2-1)
[2023-05-22 10:58] LABS: CALCIUM 9.3 mg/dL (8.5-10.1); MAGNESIUM 1.8 mg/dL (1.8-2.4)
[2023-05-22] MEDS: LIDOCAINE PATCH REMOVAL MC SCH (22:12)
[2023-05-23] MEDS: ACETAMINOPHEN 325 MG TABLET (FP) PO PRN ×2 (02:20→16:34)
[2023-05-23] MEDS: LEVOTHYROXINE NA 25 MCG TABLET (FP) PO SCH (05:59)
[2023-05-23] MEDS: LISINOPRIL 20 MG TABLET PO SCH (10:25)
[2023-05-23] MEDS: HEPARIN NA (PORCINE) 5,000 UNITS/ML 1ML VIAL SQ SCH ×2 (10:25→21:40)
[2023-05-23] MEDS: LIDOCAINE 4% PATCH TP SCH (10:25)
[2023-05-23] MEDS: CEFTRIAXONE 1 GM in DEXTROSE 5%-WATER - 50 ML IVPB SCH (10:26)
[2023-05-23] MEDS: LIDOCAINE PATCH REMOVAL MC SCH (21:40)
[2023-05-24] MEDS: ACETAMINOPHEN 325 MG TABLET (FP) PO PRN (01:37)
[2023-05-24] MEDS: LEVOTHYROXINE NA 25 MCG TABLET (FP) PO SCH (06:29)
[2023-05-24 08:57] LABS: EOS % 3.6 % (0-4.5); HEMATOCRIT 33.6 % (32.4-45.2); HEMOGLOBIN 11.3 GM/dL (10.7-15.3); LYMPH % 40.9 % (8-40); MCH 29.8 pg (25.7-33.7); MCHC 33.6 g/dl (32.0-36.0); MEAN CELL VOLUME 88.6 fl (80-96); MONO % 11.7 % (3.8-10.2); NEUT % 42.8 % (42.8-82.8); PLATELET COUNT 242 10^3/uL (134-434); RBC 3.79 M/mm3 (3.60-5.2); RDW 14.4 % (11.6-15.6); WHITE BLOOD COUNT 6.3 K/mm3 (4.0-10.0)
[2023-05-24 09:05] LABS: POTASSIUM 4.2 mmol/L (3.5-5.1)
[2023-05-24 09:11] LABS: BLOOD UREA NITROGEN 18.9 mg/dL (7-18); CALCIUM 9.2 mg/dL (8.5-10.1)
[2023-05-24 09:15] LABS: CREATININE 0.7 mg/dL (0.55-1.3)
[2023-05-24] MEDS: HEPARIN NA (PORCINE) 5,000 UNITS/ML 1ML VIAL SQ SCH (09:22)
[2023-05-24] MEDS: CEFTRIAXONE 1 GM in DEXTROSE 5%-WATER - 50 ML IVPB SCH (09:23)
[2023-05-24] MEDS: LIDOCAINE 4% PATCH TP SCH (09:23)
[2023-05-24] MEDS: LISINOPRIL 20 MG TABLET PO SCH (09:23)
[2023-05-24] MEDS ORDERED: MULTIVITAMINS (DAILY MVI) TABLET (FP) PO SCH (10:00)
[2023-05-24 13:58] VITALS: BP 144/69; PULSE 78; RESP 20; TEMP 98.1
== END 2023-05-24 14:16 | disposition home or self-care (01) | DRG 690 ==
LOC: JER 11:20 → JERBED 13:46 → J7W 18:15
PROVIDERS: ADMIT Internal Medicine; ATTEND Internal Medicine
DX: N39.0 Urinary tract infection, site not specified (principal); R44.3 Hallucinations, unspecified; I10 Essential (primary) hypertension; E03.9 Hypothyroidism, unspecified; E78.5 Hyperlipidemia, unspecified; I25.10 Atherosclerotic heart disease of native coronary artery without angina pectoris; R41.0 Disorientation, unspecified; B96.20 Unspecified Escherichia coli [E. coli] as the cause of diseases classified elsewhere
CPT/HCPCS: 0241U-QW; 36415; 70450-TC; 71045-TC-FY; 71046-TC-FY; 72125-TC; 72170-TC-FY; 72192-TC; 80048; 80053; 81003; 83735; 84443; 84484; 85025; 87086; 87186; 93005; 93010; 94010; 97116-GP; 97161-GP; 99285-25; J1644

== ENCOUNTER 2023-08-20 22:19 | Inpatient (IN) | payer OTHER, MEDICARE ==
[2023-08-20 22:35] VITALS: BMI 20.9
[2023-08-20] MEDS ORDERED: ACETAMINOPHEN INJECTION 100 ML IVPB ONE (23:06)
[2023-08-20] MEDS: ACETAMINOPHEN 1000 MG/100 ML BAG IVPB ONE (23:39)
[2023-08-20] MEDS: LACTATED RINGERS SOLUTION 1000 ML INFUS.BAG IV ONE (23:39)
[2023-08-20 23:46] LABS: BASO % 0.3 % (0-2.0); EOS % 0.1 % (0-4.5); HEMATOCRIT 42.3 % (32.4-45.2); HEMOGLOBIN 13.7 GM/dL (10.7-15.3); LYMPH % 7.7 % (8-40); MCH 29.1 pg (25.7-33.7); MCHC 32.4 g/dl (32.0-36.0); MEAN CELL VOLUME 89.8 fl (80-96); MEAN PLT VOLUME 8.6 fl (7.5-11.1); MONO % 7.1 % (3.8-10.2); NEUT % 84.8 % (42.8-82.8); PLATELET COUNT 323 10^3/uL (134-434); RBC 4.71 M/mm3 (3.60-5.2); RDW 15.5 % (11.6-15.6); WHITE BLOOD COUNT 13.7 K/mm3 (4.0-10.0)
[2023-08-21 00:08] LABS: CALCIUM 10.2 mg/dL (8.5-10.1); MAGNESIUM 2.1 mg/dL (1.8-2.4)
[2023-08-21 00:13] LABS: BILIRUBIN,TOTAL 1.2 mg/dL (0.2-1)
[2023-08-21 00:22] LABS: POTASSIUM 5.2 mmol/L (3.5-5.1)
[2023-08-21] MEDS: LACTATED RINGERS SOLUTION 1000 ML INFUS.BAG IV ONE (04:10)
[2023-08-21 04:35] LABS: EPI CELLS >36 /uL (0-25.1); HYALINE CASTS 2 /uL (0-3.1); PH,URINE 5.5 (5.0-8.0); URINE APPEARANCE TURBID; URINE BACTERIA >9,000 /uL (0-1359); URINE BILIRUBIN 1+ (NEGATIVE); URINE COLOR DK YELLOW; URINE GLUCOSE (UA) NEGATIVE (NEGATIVE); URINE KETONE 2+ (NEGATIVE); URINE LEUK ESTERASE TRACE (NEGATIVE); URINE NITRITE NEGATIVE (NEGATIVE); URINE PROTEIN TRACE (NEGATIVE); URINE WBC 85 /uL (0-25.8)
[2023-08-21] MEDS ORDERED: CEFTRIAXONE 1 GM/50 ML BAG ONE (04:55)
[2023-08-21] MEDS: CEFTRIAXONE 1 GM in DEXTROSE 5%-WATER - 100 ML IVPB ONE (05:03)
[2023-08-21 06:35] LABS: URINE RBC 51.5 /uL (0-23.9)
[2023-08-21] MEDS: ATORVASTATIN CA 40 MG TABLET (FP) PO SCH (21:38)
[2023-08-21] MEDS: LIDOCAINE PATCH REMOVAL MC SCH (21:38)
[2023-08-21] MEDS: HEPARIN NA (PORCINE) 5,000 UNITS/ML 1ML VIAL SQ SCH (21:38)
[2023-08-22] MEDS: LEVOTHYROXINE NA 25 MCG TABLET (FP) PO SCH (06:21)
[2023-08-22 08:26] LABS: EOS % 0.8 % (0-4.5); HEMOGLOBIN 11.9 GM/dL (10.7-15.3); LYMPH % 22.5 % (8-40); MCH 29.5 pg (25.7-33.7); MEAN CELL VOLUME 89.3 fl (80-96); MEAN PLT VOLUME 9.7 fl (7.5-11.1); MONO % 9.3 % (3.8-10.2); NEUT % 66.4 % (42.8-82.8); PLATELET COUNT 264 10^3/uL (134-434); RBC 4.03 M/mm3 (3.60-5.2); RDW 15.4 % (11.6-15.6); WHITE BLOOD COUNT 9.6 K/mm3 (4.0-10.0)
[2023-08-22] MEDS: CLOPIDOGREL BISULFATE 75 MG TABLET (FP) PO SCH (09:57)
[2023-08-22] MEDS: metoPROLOL SUCCINATE 25 MG TAB.SR.24H (FP) PO SCH (09:57)
[2023-08-22] MEDS: CEFTRIAXONE 1 GM in DEXTROSE 5%-WATER - 50 ML IVPB SCH (09:57)
[2023-08-22] MEDS: LISINOPRIL 20 MG TABLET PO SCH (09:58)
[2023-08-22] MEDS: amLODIPine BESYLATE 2.5 MG TABLET (FP) PO SCH (09:58)
[2023-08-22] MEDS: FAMOTIDINE 40 MG TABLET PO SCH (10:00)
[2023-08-22] MEDS: LIDOCAINE 4% PATCH TP SCH (10:00)
[2023-08-22] MEDS ORDERED: PATIENT'S OWN MEDICATION (NON-FORMULARY) (Famotidine 40 MG Tablet) PO SCH (10:00)
[2023-08-22] MEDS ORDERED: LEVOTHYROXINE NA 25 MCG TABLET (FP) PO SCH (10:00)
[2023-08-23 11:44] LABS: BASO % 0.8 % (0-2.0); EOS % 1.8 % (0-4.5); HEMATOCRIT 36.2 % (32.4-45.2); HEMOGLOBIN 12.1 GM/dL (10.7-15.3); LYMPH % 24.3 % (8-40); MCH 29.6 pg (25.7-33.7); MCHC 33.5 g/dl (32.0-36.0); MEAN CELL VOLUME 88.3 fl (80-96); MEAN PLT VOLUME 9.4 fl (7.5-11.1); MONO % 10.7 % (3.8-10.2); NEUT % 62.4 % (42.8-82.8); PLATELET COUNT 252 10^3/uL (134-434); RDW 15.1 % (11.6-15.6)
[2023-08-23 12:01] LABS: POTASSIUM 3.6 mmol/L (3.5-5.1)
[2023-08-23 12:04] LABS: BLOOD UREA NITROGEN 28.5 mg/dL (7-18); CALCIUM 9.4 mg/dL (8.5-10.1)
[2023-08-23 12:07] LABS: CREATININE 0.7 mg/dL (0.55-1.3)
[2023-08-24] MEDS: ACETAMINOPHEN 1000 MG/100 ML BAG IVPB ONE (01:19)
[2023-08-24] MEDS: MIRTAZAPINE 15 MG TABLET (FP) PO SCH (21:55)
[2023-08-25 10:06] VITALS: RESP 18
[2023-08-25 20:40] VITALS: BP 122/55; PULSE 80; TEMP 98.6
[2023-08-25] MEDS ORDERED: DONEPEZIL HCL 5 MG TABLET (FP) PO SCH (22:00)
== END 2023-08-25 20:10 | disposition home or self-care (01) | DRG 57 ==
LOC: JER 22:19 → JERBED 08-21 05:01 → J4W 08-21 14:23
PROVIDERS: ADMIT Internal Medicine; ATTEND Family Medicine
DX: G31.83 Neurocognitive disorder with Lewy bodies (principal); F02.80 Dementia in other diseases classified elsewhere, unspecified severity, without behavioral disturbance, psychotic disturbance, mood disturbance, and anxiety; I10 Essential (primary) hypertension; E03.9 Hypothyroidism, unspecified; E78.5 Hyperlipidemia, unspecified; I25.10 Atherosclerotic heart disease of native coronary artery without angina pectoris
CPT/HCPCS: 0241U-QW; 36415; 70450-TC; 71045-TC-FY; 73560-TC-LT-FY; 80048; 80053; 81003; 82607; 83735; 84484; 85025; 87086; 93005; 93010; 97116-GP; 97162-GP; 99285-25; J0131; J1644

== ENCOUNTER 2023-08-27 16:19 | Inpatient (IN) | payer OTHER, MEDICARE ==
[2023-08-27 17:31] VITALS: BMI 20.9
[2023-08-27] MEDS ORDERED: LIDOCAINE 4% PATCH TP ONE ×2 (18:59→19:02)
[2023-08-27] MEDS: LIDOCAINE 5% TOPICAL PATCH TP ONE ×2 (19:18)
[2023-08-27] MEDS: SODIUM CHLORIDE 1,000 ML IV STA (19:18)
[2023-08-27 19:33] LABS: BASO % 0.7 % (0-2.0); EOS % 1.1 % (0-4.5); HEMATOCRIT 38.8 % (32.4-45.2); HEMOGLOBIN 13.1 GM/dL (10.7-15.3); LYMPH % 19.6 % (8-40); MCH 29.9 pg (25.7-33.7); MCHC 33.7 g/dl (32.0-36.0); MEAN CELL VOLUME 88.6 fl (80-96); MEAN PLT VOLUME 9.3 fl (7.5-11.1); MONO % 9.7 % (3.8-10.2); NEUT % 68.9 % (42.8-82.8); PLATELET COUNT 284 10^3/uL (134-434); RBC 4.37 M/mm3 (3.60-5.2); RDW 15.7 % (11.6-15.6)
[2023-08-27 19:50] LABS: POTASSIUM 4.1 mmol/L (3.5-5.1)
[2023-08-27 19:51] LABS: ALBUMIN 3.4 g/dl (3.4-5.0); CALCIUM 9.2 mg/dL (8.5-10.1)
[2023-08-27 19:52] LABS: BLOOD UREA NITROGEN 21.1 mg/dL (7-18)
[2023-08-27 19:54] LABS: CREATININE 0.6 mg/dL (0.55-1.3)
[2023-08-27 19:56] LABS: BILIRUBIN,TOTAL 0.6 mg/dL (0.2-1)
[2023-08-27 20:05] LABS: ACTIVATED PTT 38.7 SECONDS (25.2-36.5); INR 0.91 (0.83-1.09); PROTHROMBIN TIME (PATIENT) 10.3 SEC (9.7-13.0)
[2023-08-27 20:22] LABS: VENOUS BASE EXCESS -3.9 mmol/L (-2-2); VENOUS O2 SATURATION 38.1 % (70-80); VENOUS PCO2 35.3 mmHg (38-52); VENOUS PH 7.381 (7.310-7.410)
[2023-08-27] MEDS ORDERED: LIDOCAINE PATCH REMOVAL MC SCH (22:00)
[2023-08-27] MEDS: SODIUM CHLORIDE 0.9% 500 ML INFUS.BAG IV ONE (22:43)
[2023-08-28] MEDS ORDERED: ASPIRIN 81 MG CHEWABLE TABLETS ONE (01:57)
[2023-08-28] MEDS: ASPIRIN 81 MG CHEWABLE TABLETS PO ONE (01:57)
[2023-08-28 08:55] LABS: BASO % 0.6 % (0-2.0); HEMATOCRIT 36.6 % (32.4-45.2); HEMOGLOBIN 12.5 GM/dL (10.7-15.3); LYMPH % 17.6 % (8-40); MCH 30.3 pg (25.7-33.7); MCHC 34.3 g/dl (32.0-36.0); MEAN CELL VOLUME 88.5 fl (80-96); MEAN PLT VOLUME 9.6 fl (7.5-11.1); NEUT % 71.8 % (42.8-82.8); PLATELET COUNT 277 10^3/uL (134-434); RBC 4.14 M/mm3 (3.60-5.2); RDW 15.3 % (11.6-15.6); WHITE BLOOD COUNT 9.1 K/mm3 (4.0-10.0)
[2023-08-28 09:04] LABS: CHLORIDE 111 mmol/L (98-107); POTASSIUM 4.2 mmol/L (3.5-5.1); SODIUM 139 mmol/L (136-145)
[2023-08-28 09:11] LABS: ALBUMIN 3.2 g/dl (3.4-5.0); ANION GAP 4 mmol/L (4-13); BLOOD UREA NITROGEN 17.5 mg/dL (7-18); CALCIUM 8.9 mg/dL (8.5-10.1); CO2 25 mmol/L (21-32)
[2023-08-28 09:12] LABS: GLUCOSE,RANDOM 90 mg/dL (74-106)
[2023-08-28 09:14] LABS: BILIRUBIN,TOTAL 0.7 mg/dL (0.2-1); CREATININE 0.4 mg/dL (0.55-1.3); LDL CHOLESTEROL (ONLY SJRH) 84 mg/dL (5-100); SGOT/AST 20 U/L (15-37); SGPT/ALT 20 U/L (13-61); TOT PROT 5.8 g/dl (6.4-8.2)
[2023-08-28 09:15] LABS: ALK PHOS 66 U/L (45-117); CHOLESTEROL 151 mg/dL (50-200); HDL CHOLESTEROL 57 mg/dL (40-60)
[2023-08-28] MEDS: CLOPIDOGREL BISULFATE 75 MG TABLET (FP) PO SCH (10:15)
[2023-08-28] MEDS: ASPIRIN COATED 81 MG TABLET.EC PO SCH (10:15)
[2023-08-28] MEDS: LIDOCAINE PATCH REMOVAL MC SCH (10:15)
[2023-08-29] MEDS: ATORVASTATIN CA 40 MG TABLET (FP) PO SCH (21:02)
[2023-08-30] MEDS: LEVOTHYROXINE NA 25 MCG TABLET (FP) PO SCH (06:18)
[2023-08-30] MEDS: levETIRAcetam 500 MG/5 ML INJECTION VIAL IVPB ONE (06:44)
[2023-08-30 08:49] LABS: BASO % 0.8 % (0-2.0); HEMATOCRIT 34.1 % (32.4-45.2); HEMOGLOBIN 11.5 GM/dL (10.7-15.3); LYMPH % 20.6 % (8-40); MCHC 33.6 g/dl (32.0-36.0); MEAN CELL VOLUME 89.4 fl (80-96); MEAN PLT VOLUME 9.3 fl (7.5-11.1); MONO % 12.1 % (3.8-10.2); NEUT % 64.5 % (42.8-82.8); PLATELET COUNT 256 10^3/uL (134-434); RBC 3.82 M/mm3 (3.60-5.2); RDW 15.3 % (11.6-15.6); WHITE BLOOD COUNT 7.5 K/mm3 (4.0-10.0)
[2023-08-30 09:06] LABS: POTASSIUM 3.8 mmol/L (3.5-5.1)
[2023-08-30 09:08] LABS: CALCIUM 8.7 mg/dL (8.5-10.1)
[2023-08-30 09:09] LABS: ALBUMIN 2.8 g/dl (3.4-5.0); BLOOD UREA NITROGEN 18.7 mg/dL (7-18); MAGNESIUM 1.8 mg/dL (1.8-2.4)
[2023-08-30 09:12] LABS: CREATININE 0.4 mg/dL (0.55-1.3)
[2023-08-30 09:14] LABS: BILIRUBIN,TOTAL 0.6 mg/dL (0.2-1); TOT PROT 5.2 g/dl (6.4-8.2)
[2023-08-30] MEDS: metoPROLOL SUCCINATE 25 MG TAB.SR.24H (FP) PO SCH (10:09)
[2023-08-30] MEDS: FAMOTIDINE 20 MG TABLET PO SCH (10:09)
[2023-08-30] MEDS: AMINO ACIDS 4.25%/D5W 1,000 ML IV SCH (10:09)
[2023-08-30 10:24] LABS: ARTERIAL BLD GAS O2 SATURATION 97.6 % (95-98); ARTERIAL BLOOD GAS BASE EXCESS -2.7 mmol/L (-2-2); ARTERIAL BLOOD GAS PO2 99.1 mmHg (80-100); ARTERIAL BLOOD GAS pH 7.404 (7.350-7.450)
[2023-08-30 10:25] LABS: ALLENS TEST POSITIVE
[2023-08-30] MEDS: levETIRAcetam 500 MG/5 ML INJECTION VIAL IVPB SCH (12:39)
[2023-08-30 16:12] LABS: PH,URINE 5.5 (5.0-8.0); URINE APPEARANCE CLEAR; URINE BILIRUBIN NEGATIVE (NEGATIVE); URINE COLOR YELLOW; URINE GLUCOSE (UA) NEGATIVE (NEGATIVE); URINE KETONE 2+ (NEGATIVE); URINE LEUK ESTERASE NEGATIVE (NEGATIVE); URINE NITRITE NEGATIVE (NEGATIVE); URINE PROTEIN NEGATIVE (NEGATIVE)
[2023-08-31] MEDS: ACETAMINOPHEN 1000 MG/100 ML BAG IVPB PRN (16:51)
[2023-08-31] MEDS: HEPARIN NA (PORCINE) 5,000 UNITS/ML 1ML VIAL SQ SCH (21:06)
[2023-09-01] MEDS ORDERED: levETIRAcetam 500 MG/5 ML INJECTION VIAL IVPB ONE (06:53)
[2023-09-01] MEDS: levETIRAcetam 500 MG/5 ML INJECTION VIAL IVPB SCH (07:00)
[2023-09-01 07:34] LABS: BASO % 1.3 % (0-2.0); EOS % 2.3 % (0-4.5); HEMATOCRIT 38.9 % (32.4-45.2); HEMOGLOBIN 13.2 GM/dL (10.7-15.3); MEAN CELL VOLUME 88.3 fl (80-96); MONO % 10.4 % (3.8-10.2); PLATELET COUNT 321 10^3/uL (134-434); RBC 4.41 M/mm3 (3.60-5.2); RDW 15.1 % (11.6-15.6); WHITE BLOOD COUNT 6.5 K/mm3 (4.0-10.0)
[2023-09-01 07:38] LABS: POTASSIUM 3.4 mmol/L (3.5-5.1)
[2023-09-01 07:55] LABS: CALCIUM 9.3 mg/dL (8.5-10.1)
[2023-09-01 07:56] LABS: BLOOD UREA NITROGEN 15.5 mg/dL (7-18)
[2023-09-01 07:58] LABS: CREATININE 0.5 mg/dL (0.55-1.3)
[2023-09-01 08:00] LABS: BILIRUBIN,TOTAL 0.6 mg/dL (0.2-1); TOT PROT 6.3 g/dl (6.4-8.2)
[2023-09-01 08:02] LABS: ALBUMIN 3.5 g/dl (3.4-5.0)
[2023-09-02] MEDS: ACETAMINOPHEN 500 MG TABLET (FP) PO PRN (09:57)
[2023-09-02] MEDS: levETIRAcetam 500 MG TABLET (FP) PO SCH (15:59)
[2023-09-11 18:46] VITALS: BP 130/73; PULSE 67; RESP 19; TEMP 98.3
== END 2023-09-11 19:23 | DRG 65 ==
LOC: JER 16:19 → JERBED 22:35 → J4S 08-28 05:37 → OBSVTOIN 08-28 15:24
PROVIDERS: ADMIT Internal Medicine; ATTEND Internal Medicine
DX: I63.89 Other cerebral infarction (principal); R44.3 Hallucinations, unspecified; E78.00 Pure hypercholesterolemia, unspecified; K59.00 Constipation, unspecified; I45.10 Unspecified right bundle-branch block; R29.700 NIHSS score 0; I10 Essential (primary) hypertension; E78.5 Hyperlipidemia, unspecified; E03.9 Hypothyroidism, unspecified; R41.0 Disorientation, unspecified; R55 Syncope and collapse; M25.552 Pain in left hip; D49.0 Neoplasm of unspecified behavior of digestive system; F03.90 Unspecified dementia, unspecified severity, without behavioral disturbance, psychotic disturbance, mood disturbance, and anxiety; M25.551 Pain in right hip; I25.10 Atherosclerotic heart disease of native coronary artery without angina pectoris; K21.9 Gastro-esophageal reflux disease without esophagitis; K44.9 Diaphragmatic hernia without obstruction or gangrene; Z96.653 Presence of artificial knee joint, bilateral; Z71.89 Other specified counseling
CPT/HCPCS: 0241U-QW; 36415; 36600; 70450-TC; 70551-TC; 71045-TC-FY; 72170-TC-FY; 80053; 80061; 81003; 82607; 82803; 82962; 83036; 83605; 83735; 84443; 84484; 85025; 85610; 85730; 87040; 87086; 93005; 93010; 93306-TC; 93880-TC; 97116-GP; 97162-GP; 99285-25; G0378; J0131; J1644

== ENCOUNTER 2024-12-11 13:58 | Inpatient (IN) | payer OTHER, MEDICARE ==
[2024-12-11] MEDS: SODIUM CHLORIDE 1,000 ML IV SCH (14:38)
[2024-12-11 14:47] LABS: CO2 28 mmol/L (21-32)
[2024-12-11 14:50] LABS: GLUCOSE,RANDOM 97 mg/dL (74-106)
[2024-12-11 14:51] LABS: CREATININE 0.4 mg/dL (0.55-1.3); INR 1.06 (0.83-1.09); PROTHROMBIN TIME (PATIENT) 11.7 SEC (9.7-13.0); SGOT/AST 18 U/L (15-37); SGPT/ALT 25 U/L (13-61)
[2024-12-11 14:52] LABS: TOT PROT 5.8 g/dl (6.4-8.2)
[2024-12-11 14:54] LABS: ACTIVATED PTT 32.7 SECONDS (25.2-36.5)
[2024-12-11 14:55] LABS: LDL CHOLESTEROL (ONLY SJRH) 74 mg/dL (5-100)
[2024-12-11 14:56] LABS: ALK PHOS 77 U/L (45-117)
[2024-12-11 15:33] LABS: ABSOLUTE IMMATURE GRANULOCYTES 0.03 x10^3/uL (0.0-0.031); BASOPHILS # 0.09 x10^3/uL (0.01-0.08); EOSINOPHIL % 2.6 % (0.7-5.8); EOSINOPHILS # 0.24 x10^3/uL (0.04-0.36); MCHC 31.2 g/dl (32.2-35.5); MEAN CELL VOLUME 92.2 fl (79.4-94.8); MONOCYTE # 0.96 x10^3/uL (0.24-0.86); MONOCYTE % 10.5 % (4.7-12.5); RDW 14.2 % (12.5-17.0)
[2024-12-11 16:12] LABS: URINE APPEARANCE CLOUDY; URINE BILIRUBIN NEGATIVE (NEGATIVE); URINE COLOR YELLOW; URINE GLUCOSE (UA) NEGATIVE (NEGATIVE); URINE KETONE NEGATIVE (NEGATIVE); URINE LEUK ESTERASE NEGATIVE (NEGATIVE); URINE NITRITE NEGATIVE (NEGATIVE); URINE PROTEIN NEGATIVE (NEGATIVE); URINE UROBILINOGEN 1.0 mg/dL (0.2-1.0)
[2024-12-11] MEDS ORDERED: ACETAMINOPHEN INJECTION 100 ML ONE (16:56)
[2024-12-11] MEDS: ACETAMINOPHEN 1000 MG/100 ML BAG IVPB ONE (17:01)
[2024-12-12] MEDS: LEVOTHYROXINE NA 25 MCG TABLET (FP) PO SCH (06:08)
[2024-12-12] MEDS: GABAPENTIN 100 MG CAPSULE PO SCH (06:08)
[2024-12-12] MEDS: levETIRAcetam 500 MG/5 ML INJECTION VIAL IVPB SCH (09:30)
[2024-12-12] MEDS: SERTRALINE HCL 50 MG TABLET (FP) PO SCH (09:31)
[2024-12-12] MEDS: CLOPIDOGREL BISULFATE 75 MG TABLET (FP) PO SCH (09:31)
[2024-12-12] MEDS: LISINOPRIL 20 MG TABLET PO SCH (09:31)
[2024-12-12] MEDS: FAMOTIDINE 20 MG TABLET PO SCH (09:31)
[2024-12-12] MEDS: LIDOCAINE 5% TOPICAL PATCH TP SCH (09:32)
[2024-12-12] MEDS: METOPROLOL TARTRATE 5 MG/5 ML VIAL IVPUSH PRN (11:34)
[2024-12-12] MEDS: ACETAMINOPHEN 1000 MG/100 ML BAG IVPB ONE (20:53)
[2024-12-12] MEDS: LIDOCAINE PATCH REMOVAL MC SCH (21:21)
[2024-12-12] MEDS: ATORVASTATIN CA 40 MG TABLET (FP) PO SCH (21:25)
[2024-12-13] MEDS ORDERED: ACETAMINOPHEN 1000 MG/100 ML BAG IVPB PRN (08:37)
[2024-12-13 13:07] VITALS: BMI 29.4
[2024-12-14] MEDS: levETIRAcetam 500 MG/5 ML ORAL SOLUTION (UNIT-DOSE CUPS) PO SCH (16:36)
[2024-12-14] MEDS: levETIRAcetam 500 MG/5 ML INJECTION VIAL IVPB SCH (22:52)
[2024-12-14] MEDS: PRAMIPEXOLE DIHYDROCHLORIDE 0.125 MG TABLET PO SCH (23:08)
[2024-12-15] MEDS: levETIRAcetam 500 MG/5 ML ORAL SOLUTION (UNIT-DOSE CUPS) PO SCH (09:36)
[2024-12-15] MEDS: levETIRAcetam 500 MG/5 ML INJECTION VIAL IVPB SCH (21:24)
[2024-12-16 06:02] VITALS: PULSE 89
[2024-12-16 09:49] VITALS: BP 135/53; RESP 17; TEMP 98.4
== END 2024-12-16 13:56 | disposition hospice, inpatient (51) | DRG 312 ==
LOC: JER 13:58 → UNDOADMOB 17:18 → JERBED 17:18 → J6W TELE 21:52 → OBSVTOIN 12-12 13:43
PROVIDERS: ADMIT Family Medicine; ATTEND Family Medicine
DX: R55 Syncope and collapse (principal); R53.2 Functional quadriplegia; I69.354 Hemiplegia and hemiparesis following cerebral infarction affecting left non-dominant side; R53.1 Weakness; F03.90 Unspecified dementia, unspecified severity, without behavioral disturbance, psychotic disturbance, mood disturbance, and anxiety; I10 Essential (primary) hypertension; G40.909 Epilepsy, unspecified, not intractable, without status epilepticus; F32.A Depression, unspecified; E03.9 Hypothyroidism, unspecified; E78.5 Hyperlipidemia, unspecified; I25.10 Atherosclerotic heart disease of native coronary artery without angina pectoris; I44.4 Left anterior fascicular block; K21.9 Gastro-esophageal reflux disease without esophagitis
CPT/HCPCS: 36415; 70450-TC; 70496-TC; 70498-TC; 73030-TC-RT-FY; 80053; 80061; 81003; 82550; 82962; 83036; 83605; 84484; 85025; 85610; 85730; 86850; 86900; 86901; 87040; 87086; 93005; 93010; 95816; 97161-GP; 99285-25; G0378